=== PATIENT | female | born 1960 | race African-American/Black ===

== ENCOUNTER 2021-02-12 13:01 | Emergency (ER) | payer OTHER ==
[2021-02-12 13:11] LABS: Glucose,Whole Blood 237 mg/dL (75-99)
[2021-02-12 13:12] VITALS: TEMP 98
[2021-02-12] MEDS ORDERED: SODIUM CHLORIDE 0.9% 1,000 ML IV STA (13:19)
--- NOTE | 2021-02-12 13:33 | ED ---
General Adult HPI - General Source: patient Mode of arrival: wheelchair Limitations: no limitations <Isaac Mosley Vitor - Last Filed: 02/12/21 14:53> <Sarah Villatoro Rachell - Last Filed: 02/12/21 21:39> - General Chief complaint: Recheck/Abnormal Lab/Rx Stated complaint: hyperglycemia Time Seen by Provider: 02/12/21 13:19 - History of Present Illness Initial comments: Dictation was produced using eegoes dictation software. please excuse any grammatical, word or spelling errors. This patient was cared for during a federal and state declared state of emergency secondary to Covid 19 Chief Complaint: 60-year-old female presents emergency department for weakness History of Present Illness: Patient is a 60-year-old female presents to the emergency department for weakness. Patient states she was admitted to [facility] ICU yesterday. She was found to have anemia given's blood transfusion. She'll likely she was treated there. She ate a meat loaf and asked for food after and they did not give her any more food. She signed out AGAINST MEDICAL ADVICE and came to our hospital. She states she's been feeling better since the blood transfusion. She has no pain complaints. Denies any GI bleed. She is checking her sugars at home which have been reading very high. Her blood sugar in triage was 237. The ROS documented in this emergency department record has been reviewed and confirmed by me. Those systems with pertinent positive or negative responses have been documented in the HPI. All other systems are other negative and/or noncontributory. PHYSICAL EXAM: General Impression: Alert and oriented x3, not in acute distress HEENT: Normocephalic atraumatic, extra-ocular movements intact, pupils equal and reactive to light bilaterally, mucous membranes moist. Cardiovascular: Heart regular rate and rhythm Chest: Able to complete full sentences, no retractions, no tachypnea Abdomen: abdomen soft, non-tender, non-distended, no organomegaly Musculoskeletal: Pulses present and equal in all extremities, no peripheral edema, right lower extremity amputation Motor: no focal deficits noted Neurological: CN II-XII grossly intact, no focal motor or sensory deficits noted Skin: Intact with no visualized rashes Psych: Normal affect and mood ED course: 60-year-old female who signed out AGAINST MEDICAL ADVICE at [facility] presents to our emergency department for weakness. She states that she was admitted yesterday to [facility] ICU for anemia. She received a blood transfusion she says. Vital signs upon arrival are within acceptable limits. Patient's in no acute distress at bedside. Clinical documentation from [facility] was reviewed from last admission. Patient labs from yesterday shows a hemoglobin of 6.5, hematocrit of 19.7. Metabolic panel showed potassium 3.3, BUN of 58, creatinine 1.2. Coronavirus negative. plan was admission to ICU with consult to GI. patient care signed out to Dr. Villatoro for follow up of pending lab studies. EKG interpretation: Ventricular rate 94, normal sinus rhythm,. Interval 140, QRS 70, QTc 462. No ME prolongation, no QTC prolongation, no ST or T-wave changes noted. Overall, this EKG is unremarkable (Isaac Mosley) - Related Data Home Medications Medication Instructions Recorded Confirmed Atorvastatin [Lipitor] 20 mg PO HS 02/12/21 02/12/21 Chlorthalidone 25 mg PO DAILY 02/12/21 02/12/21 Cilostazol [Pletal] 100 mg PO BID 02/12/21 02/12/21 Clopidogrel [Plavix] 75 mg PO DAILY 02/12/21 02/12/21 Docusate [Colace] 100 mg PO DAILY 02/12/21 02/12/21 Ferrous Sulfate [Feosol] 325 mg PO BID 02/12/21 02/12/21 INSULIN LISPRO (humaLOG) [humaLOG] 14 units SQ AC-TID 02/12/21 02/12/21 Insulin Glargine,Hum.rec.anlog 20 unit SQ DAILY 02/12/21 02/12/21 [Lantus Solostar] Insulin Glargine,Hum.rec.anlog 30 unit SQ HS 02/12/21 02/12/21 [Lantus Solostar] Pantoprazole Sodium [Protonix] 40 mg PO DAILY 02/12/21 02/12/21 Potassium Chloride [Klor-Con 20] 20 meq PO DAILY 02/12/21 02/12/21 Pregabalin [Lyrica] 150 mg PO BID 02/12/21 02/12/21 Rivaroxaban [Xarelto] 20 mg PO HS 02/12/21 02/12/21 lisinopriL 40 mg PO DAILY 02/12/21 02/12/21 metFORMIN HCL 1,000 mg PO W/SUPPER 02/12/21 02/12/21 oxyCODONE-APAP 10-325MG [Percocet 1 tab PO Q8HR PRN 02/12/21 02/12/21 10-325 mg] Allergies Allergy/AdvReac Type Severity Reaction Status Date / Time heparin Allergy Anaphylaxis Verified 02/12/21 14:43 morphine Allergy Anaphylaxis Verified 02/12/21 14:43 tree nut Allergy Nausea & Verified 02/12/21 14:43 Vomiting & Diarrhea Review of Systems ROS Other: All systems not noted in ROS Statement are negative. <Isaac Mosley - Last Filed: 02/12/21 14:53> ROS Other: All systems not noted in ROS Statement are negative. <Sarah Villatoro - Last Filed: 02/12/21 21:39> ROS Statement: Those systems with pertinent positive or pertinent negative responses have been documented in the HPI. Past Medical History Past Medical History: Diabetes Mellitus, Hyperlipidemia, Hypertension History of Any Multi-Drug Resistant Organisms: None Reported Past Surgical History: Orthopedic Surgery Additional Past Surgical History / Comment(s): neck fusion. rt below knee amputaion Past Psychological History: No Psychological Hx Reported Smoking Status: Never smoker Past Alcohol Use History: None Reported Past Drug Use History: None Reported <Isaac Mosley - Last Filed: 02/12/21 14:53> General Exam Limitations: no limitations <Isaac Mosley - Last Filed: 02/12/21 14:53> Course Vital Signs 02/12/21 02/12/21 13:08 16:05 Temperature 98.0 F Pulse Rate 100 92 Respiratory 22 18 Rate Blood Pressure 115/79 110/82 O2 Sat by Pulse 100 98 Oximetry Medical Decision Making - Lab Data Result diagrams: 02/12/21 13:51 02/12/21 13:51 <Sarah Villatoro - Last Filed: 02/12/21 21:39> - Medical Decision Making The patient was signed out to me from Dr. Mosley. I did review the patient's labs. She previously left [facility] AGAINST MEDICAL ADVICE after she was found to have a low hemoglobin level. Occult was negative and the patient was provided with 1 unit of blood. Patient left last night and presents to our Hospital today for reevaluation. She denies any active bleeding. 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 Patient is suspicious that she may have loss of blood after this procedure as there is no other reason for her anemia. Patient states that since her blood transfusion she has felt well. I reviewed the patient's labs which demonstrated that she has a hemoglobin of 8.1. Patient reports that if her hemoglobin is stable at this time she would like to be discharged. Patient is informed that she must absolutely without fail follow-up with her primary care doctor within 2 days and have repeat laboratory studies drawn to ensure that her hemoglobin is staying stable. Patient agreed to this. I did speak with Ruben Wright from Dr. Corona's office. The patient is capable of making her own decisions and therefore will be discharged at this time to follow-up with him or Dr. Corona. Patient understood this. Asked to return to the emergency room should she have any new or worsening symptoms per patient was discharged home in stable condition (Sarah Villatoro) - Lab Data Lab Results 02/12/21 02/12/21 02/12/21 Range/Units 13:10 13:51 13:51 WBC 8.0 (3.8-10.6) k/uL RBC 2.66 L (3.80-5.40) m/uL Hgb 8.1 L (11.4-16.0) gm/dL Hct 25.0 L (34.0-46.0) % MCV 93.8 (80.0-100.0) fL MCH 30.4 (25.0-35.0) pg MCHC 32.4 (31.0-37.0) g/dL RDW 17.3 H (11.5-15.5) % Plt Count 270 (150-450) k/uL MPV 8.8 Neutrophils % 73 % Lymphocytes % 21 % Monocytes % 3 % Eosinophils % 2 % Basophils % 0 % Neutrophils # 5.8 (1.3-7.7) k/uL Lymphocytes # 1.7 (1.0-4.8) k/uL Monocytes # 0.3 (0-1.0) k/uL Eosinophils # 0.1 (0-0.7) k/uL Basophils # 0.0 (0-0.2) k/uL Hypochromasia Slight Poikilocytosis Slight Anisocytosis Slight PT (9.0-12.0) sec INR (<1.2) APTT (22.0-30.0) sec Sodium (137-145) mmol/L Potassium (3.5-5.1) mmol/L Chloride (98-107) mmol/L Carbon Dioxide (22-30) mmol/L Anion Gap mmol/L BUN (7-17) mg/dL Creatinine (0.52-1.04) mg/dL Est GFR (CKD-EPI)AfAm (>60 ml/min/1.73 sqM) Est GFR (CKD-EPI)NonAf (>60 ml/min/1.73 sqM) Glucose (74-99) mg/dL POC Glucose (mg/dL) 237 H (75-99) mg/dL POC Glu Carbonator ID [facility] Plasma Lactic Acid Mamadou (0.7-2.0) mmol/L Calcium (8.4-10.2) mg/dL Urine Color Light Yellow Urine Appearance Clear (Clear) Urine pH 5.5 (5.0-8.0) Ur Specific Halliday 1.012 (1.001-1.035) Urine Protein Negative (Negative) Urine Glucose (UA) Trace H (Negative) Urine Ketones Negative (Negative) Urine Blood Negative (Negative) Urine Nitrite Negative (Negative) Urine Bilirubin Negative (Negative) Urine Urobilinogen <2.0 (<2.0) mg/dL Ur Leukocyte Esterase Negative (Negative) 02/12/21 02/12/21 02/12/21 Range/Units 13:51 13:51 15:07 WBC (3.8-10.6) k/uL RBC (3.80-5.40) m/uL Hgb (11.4-16.0) gm/dL Hct (34.0-46.0) % MCV (80.0-100.0) fL MCH (25.0-35.0) pg MCHC (31.0-37.0) g/dL RDW (11.5-15.5) % Plt Count (150-450) k/uL MPV Neutrophils % % Lymphocytes % % Monocytes % % Eosinophils % % Basophils % % Neutrophils # (1.3-7.7) k/uL Lymphocytes # (1.0-4.8) k/uL Monocytes # (0-1.0) k/uL Eosinophils # (0-0.7) k/uL Basophils # (0-0.2) k/uL Hypochromasia Poikilocytosis Anisocytosis PT 9.9 (9.0-12.0) sec INR 0.9 (<1.2) APTT 18.2 L (22.0-30.0) sec Sodium 144 (137-145) mmol/L Potassium 4.1 (3.5-5.1) mmol/L Chloride 111 H (98-107) mmol/L Carbon Dioxide 28 (22-30) mmol/L Anion Gap 5 mmol/L BUN 27 H (7-17) mg/dL Creatinine 0.66 (0.52-1.04) mg/dL Est GFR (CKD-EPI)AfAm >90 (>60 ml/min/1.73 sqM) Est GFR (CKD-EPI)NonAf >90 (>60 ml/min/1.73 sqM) Glucose 170 H (74-99) mg/dL POC Glucose (mg/dL) (75-99) mg/dL POC Glu Carbonator ID Plasma Lactic Acid Mamadou 1.4 (0.7-2.0) mmol/L Calcium 9.8 (8.4-10.2) mg/dL Urine Color Urine Appearance (Clear) Urine pH (5.0-8.0) Ur Specific Halliday (1.001-1.035) Urine Protein (Negative) Urine Glucose (UA) (Negative) Urine Ketones (Negative) Urine Blood (Negative) Urine Nitrite (Negative) Urine Bilirubin (Negative) Urine Urobilinogen (<2.0) mg/dL Ur Leukocyte Esterase (Negative) Disposition <Isaac Mosley - Last Filed: 02/12/21 14:53> Is patient prescribed a controlled substance at d/c from ED?: No Time of Disposition: 15:56 <Sarah Villatoro - Last Filed: 02/12/21 21:39> Clinical Impression: Anemia Disposition: HOME SELF-CARE Condition: Stable Instructions (If sedation given, give patient instructions): Anemia (ED) Additional Instructions: You must follow up with Dr. Corona for repeat blood work in 2-4 day. Return to the ED for any new or worsening symptoms. Referrals: Luc Corona MD [Primary Care Provider] - 1-2 days
[2021-02-12 15:08] LABS: Appearance,Urine Clear (Clear); Bilirubin,Urine Negative (Negative); Blood,Urine Negative (Negative); Color,Urine Light Yellow; Glucose,Urine (UA) Trace (Negative); Ketones,Urine Negative (Negative); Leukocyte Esterase,Urine Negative (Negative); Nitrite,Urine Negative (Negative); PH, Urine 5.5 (5.0-8.0); Protein,Urine Negative (Negative); Specific Gravity,Urine 1.012 (1.001-1.035); Urobilinogen,Urine <2.0 mg/dL (<2.0)
[2021-02-12 15:17] LABS: African American GFR (CKD) >90 (>60 ml/min/1.73 sqM); Anion Gap 5 mmol/L; Blood Urea Nitrogen 27 mg/dL (7-17); Calcium 9.8 mg/dL (8.4-10.2); Carbon Dioxide 28 mmol/L (22-30); Chloride 111 mmol/L (98-107); Glucose 170 mg/dL (74-99); Non-African American GFR(CKD) >90 (>60 ml/min/1.73 sqM); Potassium 4.1 mmol/L (3.5-5.1); Sodium 144 mmol/L (137-145)
[2021-02-12 15:24] LABS: Anisocytosis Slight; Basophils % (A) 0 %; Eosinophils # (A) 0.1 k/uL (0-0.7); Eosinophils % (A) 2 %; HGB 8.1 gm/dL (11.4-16.0); Hypochromasia Slight; Lymphocytes # (A) 1.7 k/uL (1.0-4.8); Lymphocytes % (A) 21 %; MCH 30.4 pg (25.0-35.0); MCHC 32.4 g/dL (31.0-37.0); MCV 93.8 fL (80.0-100.0); Mean Platelet Volume 8.8; Monocytes # (A) 0.3 k/uL (0-1.0); Monocytes % (A) 3 %; Neutrophils # (A) 5.8 k/uL (1.3-7.7); Neutrophils % (A) 73 %; Platelet Count 270 k/uL (150-450); Poikilocytosis Slight; RBC 2.66 m/uL (3.80-5.40); RDW 17.3 % (11.5-15.5)
[2021-02-12 15:36] LABS: INR 0.9 (<1.2); Prothrombin Time 9.9 sec (9.0-12.0)
[2021-02-12 15:49] LABS: Partial Thromboplastin Time 18.2 sec (22.0-30.0)
[2021-02-12 16:06] VITALS: BP 110/82; PULSE 92; RESP 18
== END 2021-02-12 16:16 | disposition home or self-care (01) ==
LOC: EC 13:01
DX: D64.9 Anemia, unspecified (principal); E78.5 Hyperlipidemia, unspecified; I10 Essential (primary) hypertension; E11.9 Type 2 diabetes mellitus without complications; Z79.84 Long term (current) use of oral hypoglycemic drugs
CPT/HCPCS: 36415; 80048; 81003; 83605; 85025; 85610; 85730; 93005; 96360; 99285

== ENCOUNTER 2021-02-20 12:38 | Inpatient (IN) | payer OTHER ==
[2021-02-20] MEDS ORDERED: SODIUM CHLORIDE 0.9% 500 ML 500 ML IV STA (13:01)
--- NOTE | 2021-02-20 13:27 | ED ---
General Adult HPI - General Chief complaint: Weakness Stated complaint: Weakness Time Seen by Provider: 02/20/21 12:45 Source: patient, RN notes reviewed, old records reviewed Mode of arrival: wheelchair Limitations: no limitations - History of Present Illness Initial comments: This a 60-year-old female presents emergency Department complaining that she is very weak. Patient states been ongoing for the last week. Patient states about a week ago she was here for anemia they did not do a scope on her and they sent her home. Patient states she continues to take her Plavix Xarelto. Patient states she has had some dark black stools but her weakness is becoming overwhelming. Patient states any kind of exertion causes increased weakness. Patient denies any chest pain or palpitations. Patient does states she is short of breath she exerts herself at all. Patient denies any abdominal pain. Patient denies any chest pain. Patient denies any leg pains. - Related Data Home Medications Medication Instructions Recorded Confirmed Atorvastatin [Lipitor] 20 mg PO HS 02/12/21 02/20/21 Chlorthalidone 25 mg PO DAILY 02/12/21 02/20/21 Cilostazol [Pletal] 100 mg PO BID 02/12/21 02/20/21 Clopidogrel [Plavix] 75 mg PO DAILY 02/12/21 02/20/21 Docusate [Colace] 100 mg PO DAILY 02/12/21 02/20/21 Ferrous Sulfate [Feosol] 325 mg PO BID 02/12/21 02/20/21 INSULIN LISPRO (humaLOG) [humaLOG] 14 units SQ AC-TID 02/12/21 02/20/21 Insulin Glargine,Hum.rec.anlog 20 unit SQ DAILY 02/12/21 02/20/21 [Lantus Solostar] Insulin Glargine,Hum.rec.anlog 30 unit SQ HS 02/12/21 02/20/21 [Lantus Solostar] Pantoprazole Sodium [Protonix] 40 mg PO DAILY 02/12/21 02/20/21 Potassium Chloride [Klor-Con 20] 20 meq PO DAILY 02/12/21 02/20/21 Pregabalin [Lyrica] 150 mg PO BID 02/12/21 02/20/21 Rivaroxaban [Xarelto] 20 mg PO HS 02/12/21 02/20/21 lisinopriL 40 mg PO DAILY 02/12/21 02/20/21 metFORMIN HCL 1,000 mg PO BID 02/12/21 02/20/21 oxyCODONE-APAP 10-325MG [Percocet 1 tab PO Q8HR PRN 02/12/21 02/20/21 10-325 mg] Allergies Allergy/AdvReac Type Severity Reaction Status Date / Time heparin Allergy Anaphylaxis Verified 02/20/21 15:54 morphine Allergy Anaphylaxis Verified 02/20/21 15:54 tree nut Allergy Nausea & Verified 02/20/21 15:54 Vomiting & Diarrhea Review of Systems ROS Statement: Those systems with pertinent positive or pertinent negative responses have been documented in the HPI. ROS Other: All systems not noted in ROS Statement are negative. Past Medical History Past Medical History: Diabetes Mellitus, Hyperlipidemia, Hypertension Additional Past Medical History / Comment(s): anemia History of Any Multi-Drug Resistant Organisms: None Reported Past Surgical History: Orthopedic Surgery Additional Past Surgical History / Comment(s): neck fusion. rt below knee amputaion Past Psychological History: No Psychological Hx Reported Smoking Status: Never smoker Past Alcohol Use History: None Reported Past Drug Use History: None Reported General Exam - General Exam Comments Initial Comments: GENERAL: Patient is well-developed and well-nourished. Patient is nontoxic and well- hydrated and is in no acute distress. ENT: Neck is soft and supple. No significant lymphadenopathy is noted. Oropharynx is clear. Moist mucous membranes. Neck has full range of motion without eliciting any pain. EYES: The sclera were anicteric and pale conjunctiva.. Extraocular movements were intact and pupils were equal round and reactive to light. Eyelids were unremarkable. PULMONARY: Unlabored respirations. Good breath sounds bilaterally. No audible rales rhonchi or wheezing was noted. CARDIOVASCULAR: Patient is tachycardic at 100 beats a minute. ABDOMEN: Soft and nontender with normal bowel sounds. SKIN: Skin is clear with no lesions or rashes and otherwise unremarkable. NEUROLOGIC: Patient is alert and oriented x3. Cranial nerves II through XII are grossly intact. Motor and sensory are also intact. Normal speech, volume and content. Symmetrical smile. MUSCULOSKELETAL: Normal extremities with adequate strength and full range of motion. LYMPHATICS: No significant lymphadenopathy is noted PSYCHIATRIC: Normal psychiatric evaluation. Limitations: no limitations Course Vital Signs 02/20/21 02/20/21 02/20/21 12:43 14:33 16:00 Temperature 98.1 F Pulse Rate 98 98 93 Respiratory 22 20 20 Rate Blood Pressure 105/46 112/66 103/54 O2 Sat by Pulse 100 100 100 Oximetry Medical Decision Making - Medical Decision Making EKG shows normal sinus rhythm at 100 bpm IA interval 138 QRS 74 QT interval 314 QTC is 45 per patient's EKG shows no ST segment elevation or depression. - Lab Data Result diagrams: 02/20/21 15:08 02/20/21 15:20 Lab Results 02/20/21 02/20/21 02/20/21 Range/Units 15:08 15:08 15:08 WBC 7.6 (3.8-10.6) k/uL RBC 1.92 L (3.80-5.40) m/uL Hgb 5.6 L* D (11.4-16.0) gm/dL Hct 18.8 L* (34.0-46.0) % MCV 98.0 (80.0-100.0) fL MCH 29.6 (25.0-35.0) pg MCHC 30.3 L (31.0-37.0) g/dL RDW 16.6 H (11.5-15.5) % Plt Count 296 (150-450) k/uL MPV 8.4 Neutrophils % 71 % Lymphocytes % 24 % Monocytes % 3 % Eosinophils % 1 % Basophils % 0 % Neutrophils # 5.4 (1.3-7.7) k/uL Lymphocytes # 1.8 (1.0-4.8) k/uL Monocytes # 0.2 (0-1.0) k/uL Eosinophils # 0.1 (0-0.7) k/uL Basophils # 0.0 (0-0.2) k/uL Hypochromasia Marked Poikilocytosis Moderate Anisocytosis Slight Macrocytosis Slight PT (9.0-12.0) sec INR (<1.2) APTT (22.0-30.0) sec Sodium (137-145) mmol/L Potassium (3.5-5.1) mmol/L Chloride (98-107) mmol/L Carbon Dioxide (22-30) mmol/L Anion Gap mmol/L BUN (7-17) mg/dL Creatinine (0.52-1.04) mg/dL Est GFR (CKD-EPI)AfAm (>60 ml/min/1.73 sqM) Est GFR (CKD-EPI)NonAf (>60 ml/min/1.73 sqM) Glucose (74-99) mg/dL Calcium (8.4-10.2) mg/dL Magnesium (1.6-2.3) mg/dL Total Bilirubin (0.2-1.3) mg/dL AST (14-36) U/L ALT (4-34) U/L Alkaline Phosphatase (38-126) U/L Troponin I <0.012 (0.000-0.034) ng/mL Total Protein (6.3-8.2) g/dL Albumin (3.5-5.0) g/dL Blood Type B Positive Blood Type Confirm Blood Type Recheck No Previous Record Bld Type Recheck Status CABO Indicated Antibody Screen NEGATIVE Crossmatch See Detail Spec Expiration Date 02/23/2021 - 230702/20/21 02/20/21 02/20/21 Range/Units 15:10 15:20 15:20 WBC (3.8-10.6) k/uL RBC (3.80-5.40) m/uL Hgb (11.4-16.0) gm/dL Hct (34.0-46.0) % MCV (80.0-100.0) fL MCH (25.0-35.0) pg MCHC (31.0-37.0) g/dL RDW (11.5-15.5) % Plt Count (150-450) k/uL MPV Neutrophils % % Lymphocytes % % Monocytes % % Eosinophils % % Basophils % % Neutrophils # (1.3-7.7) k/uL Lymphocytes # (1.0-4.8) k/uL Monocytes # (0-1.0) k/uL Eosinophils # (0-0.7) k/uL Basophils # (0-0.2) k/uL Hypochromasia Poikilocytosis Anisocytosis Macrocytosis PT 12.4 H (9.0-12.0) sec INR 1.2 H (<1.2) APTT 20.1 L (22.0-30.0) sec Sodium 141 (137-145) mmol/L Potassium 3.6 (3.5-5.1) mmol/L Chloride 108 H (98-107) mmol/L Carbon Dioxide 24 (22-30) mmol/L Anion Gap 9 mmol/L BUN 24 H (7-17) mg/dL Creatinine 0.72 (0.52-1.04) mg/dL Est GFR (CKD-EPI)AfAm >90 (>60 ml/min/1.73 sqM) Est GFR (CKD-EPI)NonAf >90 (>60 ml/min/1.73 sqM) Glucose 89 (74-99) mg/dL Calcium 9.7 (8.4-10.2) mg/dL Magnesium 1.8 (1.6-2.3) mg/dL Total Bilirubin 0.2 (0.2-1.3) mg/dL AST 19 (14-36) U/L ALT 11 (4-34) U/L Alkaline Phosphatase 74 (38-126) U/L Troponin I (0.000-0.034) ng/mL Total Protein 6.6 (6.3-8.2) g/dL Albumin 3.7 (3.5-5.0) g/dL Blood Type Blood Type Confirm B Positive Blood Type Recheck Bld Type Recheck Status Antibody Screen Crossmatch Spec Expiration Date Disposition Clinical Impression: Anemia, Generalized weakness Disposition: ADMITTED IP TO THIS HOSP Referrals: Luc Corona MD [Primary Care Provider] - 1-2 days Time of Disposition: 16:37
--- NOTE | 2021-02-20 13:46 | XR ---
EXAMINATION TYPE: XR chest 2V DATE OF EXAM: 02/20/2021 COMPARISON: NONE TECHNIQUE: PA and lateral views submitted. HISTORY: Difficulty in breathing FINDINGS: The lungs are clear and there is no pneumothorax, pleural effusion, or focal pneumonia. Mildly prom inent interstitium. Postsurgical change overlying the cervical spine. Heart size stable. IMPRESSION: 1. Correlate for bronchitis or mild interstitial pneumonitis..
[2021-02-20 15:33] LABS: Anisocytosis Slight; Basophils % (A) 0 %; Eosinophils # (A) 0.1 k/uL (0-0.7); Eosinophils % (A) 1 %; Hypochromasia Marked; Lymphocytes # (A) 1.8 k/uL (1.0-4.8); Lymphocytes % (A) 24 %; MCH 29.6 pg (25.0-35.0); MCHC 30.3 g/dL (31.0-37.0); Macrocytosis Slight; Mean Platelet Volume 8.4; Monocytes # (A) 0.2 k/uL (0-1.0); Monocytes % (A) 3 %; Neutrophils # (A) 5.4 k/uL (1.3-7.7); Neutrophils % (A) 71 %; Platelet Count 296 k/uL (150-450); Poikilocytosis Moderate; RBC 1.92 m/uL (3.80-5.40); RDW 16.6 % (11.5-15.5); WBC 7.6 k/uL (3.8-10.6)
[2021-02-20 15:42] LABS: HCT 18.8 % (34.0-46.0)
[2021-02-20 15:43] LABS: HGB 5.6 gm/dL (11.4-16.0)
[2021-02-20 15:55] LABS: INR 1.2 (<1.2); Prothrombin Time 12.4 sec (9.0-12.0)
[2021-02-20 15:56] LABS: Partial Thromboplastin Time 20.1 sec (22.0-30.0)
[2021-02-20 15:58] LABS: ALT 11 U/L (4-34); AST 19 U/L (14-36); African American GFR (CKD) >90 (>60 ml/min/1.73 sqM); Albumin 3.7 g/dL (3.5-5.0); Alkaline Phosphatase 74 U/L (38-126); Anion Gap 9 mmol/L; Blood Urea Nitrogen 24 mg/dL (7-17); Calcium 9.7 mg/dL (8.4-10.2); Carbon Dioxide 24 mmol/L (22-30); Chloride 108 mmol/L (98-107); Glucose 89 mg/dL (74-99); Magnesium 1.8 mg/dL (1.6-2.3); Non-African American GFR(CKD) >90 (>60 ml/min/1.73 sqM); Potassium 3.6 mmol/L (3.5-5.1); Sodium 141 mmol/L (137-145); Total Bilirubin 0.2 mg/dL (0.2-1.3); Total Protein 6.6 g/dL (6.3-8.2)
[2021-02-20] MEDS ORDERED: PANTOPRAZOLE 40 MG/10 ML VIAL IVP ONE (16:32)
[2021-02-20] MEDS ORDERED: SODIUM CHLORIDE 0.9% 1,000 ML IV ONE (16:38)
[2021-02-20] MEDS ORDERED: Magnesium Replacement Protocol 1 EACH MISC MISCELLANE PRN (21:14)
--- NOTE | 2021-02-20 21:36 | P.HPIM ---
History of Present Illness H&P Date: 02/20/21 Chief Complaint: Generalized weakness 60-year-old female presented to the emergency department with the complaint of generalized weakness, shortness of breath at rest and exertion and fatigue for acute on chronic duration. Patient recently hospitalized at [facility] for G.I. bleed, she left against medical advice and went [facility] and was found to have a hemoglobin of 8.0. Patient follow-up with our services for transition of care was told to hold anticoagulation therapy. Patient continued anticoagulation therapy per vascular surgeon due to severe peripheral artery disease. Patient had extensive diagnostic workup in emergency department revealing a critical hemoglobin and hematocrit.Patient has significant reaction to heparin therapy unable to use Kcentra for reversal of anticoagulation therapy.2 units of packed red blood cells ordered to transfuse with serial hemoglobin and hematocrit's. Consultation with gastroenterology, general surgery, and critical care for management of severe anemia possibly due to gastrointestinal bleeding. Patient has significant medical history of diabetes mellitus type two, peripheral vascular disease, peripheral artery disease, hypertension, hyperlipidemia, chronic nicotine dependence, and several comorbid ities. Review of Systems Constitutional: Reports chronic pain, Reports fatigue, Reports malaise, Reports weakness Cardiovascular: Reports decreased exercise tolerance, Reports dyspnea on exertion, Reports lightheadedness, Reports shortness of breath Respiratory: Reports dyspnea Gastrointestinal: Reports abdominal pain Genitourinary: Reports as per HPI Menstruation: Reports as per HPI Musculoskeletal: Reports muscle weakness Neurological: Reports balance difficulties, Reports weakness Psychiatric: Reports as per HPI Past Medical History Past Medical History: Diabetes Mellitus, Hyperlipidemia, Hypertension Additional Past Medical History / Comment(s): anemia History of Any Multi-Drug Resistant Organisms: None Reported Past Surgical History: Orthopedic Surgery Additional Past Surgical History / Comment(s): neck fusion. rt below knee amputaion Past Psychological History: No Psychological Hx Reported Smoking Status: Never smoker Past Alcohol Use History: None Reported Past Drug Use History: None Reported Medications and Allergies Home Medications and Allergies Comment(s): Medications and allergies reviewed Home Medications Medication Instructions Recorded Confirmed Type Atorvastatin [Lipitor] 20 mg PO HS 02/12/21 02/20/21 History Chlorthalidone 25 mg PO DAILY 02/12/21 02/20/21 History Cilostazol [Pletal] 100 mg PO BID 02/12/21 02/20/21 History Clopidogrel [Plavix] 75 mg PO DAILY 02/12/21 02/20/21 History Docusate [Colace] 100 mg PO DAILY 02/12/21 02/20/21 History Ferrous Sulfate [Feosol] 325 mg PO BID 02/12/21 02/20/21 History INSULIN LISPRO (humaLOG) [humaLOG] 14 units SQ AC-TID 02/12/21 02/20/21 History Insulin Glargine,Hum.rec.anlog 20 unit SQ DAILY 02/12/21 02/20/21 History [Lantus Solostar] Insulin Glargine,Hum.rec.anlog 30 unit SQ HS 02/12/21 02/20/21 History [Lantus Solostar] Pantoprazole Sodium [Protonix] 40 mg PO DAILY 02/12/21 02/20/21 History Potassium Chloride [Klor-Con 20] 20 meq PO DAILY 02/12/21 02/20/21 History Pregabalin [Lyrica] 150 mg PO BID 02/12/21 02/20/21 History Rivaroxaban [Xarelto] 20 mg PO HS 02/12/21 02/20/21 History lisinopriL 40 mg PO DAILY 02/12/21 02/20/21 History metFORMIN HCL 1,000 mg PO BID 02/12/21 02/20/21 History oxyCODONE-APAP 10-325MG [Percocet 1 tab PO Q8HR PRN 02/12/21 02/20/21 History 10-325 mg] Allergies Allergy/AdvReac Type Severity Reaction Status Date / Time heparin Allergy Anaphylaxis Verified 02/20/21 15:54 morphine Allergy Anaphylaxis Verified 02/20/21 15:54 tree nut Allergy Nausea & Verified 02/20/21 15:54 Vomiting & Diarrhea Physical Exam Vitals: Vital Signs Temp Pulse Resp BP Pulse Ox 02/20/21 21:13 98.5 F 92 18 91/38 100 02/20/21 20:31 98.6 F 101 H 18 101/50 96 02/20/21 20:01 98.3 F 90 18 103/48 97 02/20/21 19:51 98.8 F 101 H 20 86/59 96 02/20/21 19:49 98.8 F 101 H 20 86/59 96 02/20/21 19:24 98 F 69 16 121/78 02/20/21 18:00 95 18 91/51 100 02/20/21 17:31 98 02/20/21 17:21 98.5 F 82 16 116/62 02/20/21 16:51 98 F 93 18 112/71 02/20/21 16:41 98.2 F 90 16 108/57 02/20/21 16:00 93 20 103/54 100 02/20/21 14:33 98 20 112/66 100 02/20/21 12:43 98.1 F 98 22 105/46 100 Intake and Output 02/20/21 02/20/21 02/20/21 06:59 14:59 22:59 Intake Total 310 Balance 310 Intake: Blood Product 310 Rc As-1 Unit 0 [id number] Rc As-1 Unit 310 [id number] Other: Weight 99.79 kg - Constitutional General appearance: mild distress - EENT Eyes: PERRLA, poor dentition Ears: bilateral: normal - Neck Carotids: bilateral: upstroke normal Thyroid: bilateral: normal size - Respiratory Respiratory: bilateral: CTA (Anterior lung hicks), diminished (Posterior lung hicks) - Cardiovascular Sinus tachycardia Heart rate: 101 Rhythm: regular Heart sounds: normal: S1, S2 radial pulse Peripheral Pulses: bilateral: Normal - Gastrointestinal General gastrointestinal: hyperactive bowel sounds Localized gastrointestinal: tender: diffuse - Integumentary Integumentary: decreased turgor, pale - Neurologic Neurologic: CNII-XII intact - Musculoskeletal Musculoskeletal: generalized weakness - Psychiatric Psychiatric: A&O x's 3, appropriate affect, intact judgment & insight Results CBC & Chem 7: 02/20/21 15:08 02/20/21 15:20 Labs: Abnormal Lab Results - Last 24 Hours (Table) 02/20/21 02/20/21 02/20/21 Range/Units 15:08 15:08 15:20 RBC 1.92 L (3.80-5.40) m/uL Hgb 5.6 L* D (11.4-16.0) gm/dL Hct 18.8 L* (34.0-46.0) % MCHC 30.3 L (31.0-37.0) g/dL RDW 16.6 H (11.5-15.5) % PT 12.4 H (9.0-12.0) sec INR 1.2 H (<1.2) APTT 20.1 L (22.0-30.0) sec Chloride (98-107) mmol/L BUN (7-17) mg/dL Crossmatch See Detail 02/20/21 Range/Units 15:20 RBC (3.80-5.40) m/uL Hgb (11.4-16.0) gm/dL Hct (34.0-46.0) % MCHC (31.0-37.0) g/dL RDW (11.5-15.5) % PT (9.0-12.0) sec INR (<1.2) APTT (22.0-30.0) sec Chloride 108 H (98-107) mmol/L BUN 24 H (7-17) mg/dL Crossmatch Chest x-ray: report reviewed Thrombosis Risk Factor Assmnt - Choose All That Apply Each Factor Represents 1 point: Age 41-60 years, Obesity (BMI >25) Each Risk Factor Represents 3 Points: History of DVT/PE Thrombosis Risk Factor Assessment Total Risk Factor Score: 5 Thrombosis Risk Factor Assessment Level: High Risk Assessment and Plan Assessment: Gastrointestinal bleeding anemia generalized weakness diabetes mellitus type II hypertension hyperlipidemia peripheral vascular disease peripheral artery disease coronary artery disease history of G.I. bleeding below the knee amputation history of multiple femoral bypasses nicotine dependence full code Plan: Possible gastrointestinal bleeding consultation with gastroenterology, general surgery for recommendations and treatment plan. Serial hemoglobin and hematocrit's order transfused 2 units of packed red blood cells; Protonix 40 mg IV daily anemia possibly due to gastrointestinal bleeding order transfused 2 units of packed red blood cells; consultation with gastroenterology and general surgery for recommendations and treatment plan diabetes mellitus type II insulin sliding scale monitor vital signs and diagnostic testing nothing per mouth awaiting recommendations from gastroenterology and general surgery medical management consultation with critical care for multiple comorbidities further recommendations to come based on patient's clinical condition Time with Patient: Greater than 30
[2021-02-20] MEDS ORDERED: FUROSEMIDE 10 MG/ML 2 ML VIAL IV ONE (21:47)
[2021-02-20 21:50] LABS: Glucose,Whole Blood 240 mg/dL (75-99)
[2021-02-20] MEDS: INSULIN ASPART (NovoLOG) 100 UNIT/ML VIAL SQ SCH (23:57)
[2021-02-20] MEDS: MAGNESIUM SULFATE-D5W PMX 1 GM in DEXTROSE/WATER 1 100ML.BAG IVPB SCH (23:58)
[2021-02-21] MEDS: MAGNESIUM SULFATE-D5W PMX 1 GM in DEXTROSE/WATER 1 100ML.BAG IVPB SCH (01:11)
[2021-02-21 05:44] LABS: Anisocytosis Slight; HCT 24.5 % (34.0-46.0); Hypochromasia Marked; MCH 29.1 pg (25.0-35.0); MCHC 31.4 g/dL (31.0-37.0); Mean Platelet Volume 8.5; Platelet Count 255 k/uL (150-450); Poikilocytosis Slight; RBC 2.64 m/uL (3.80-5.40); RDW 17.3 % (11.5-15.5); WBC 7.3 k/uL (3.8-10.6)
[2021-02-21 05:46] LABS: HGB 7.7 gm/dL (11.4-16.0); MCV 92.8 fL (80.0-100.0)
[2021-02-21 06:06] LABS: INR 0.9 (<1.2)
[2021-02-21 06:15] LABS: Glucose,Whole Blood 229 mg/dL (75-99)
[2021-02-21 06:22] LABS: ALT 9 U/L (4-34); AST 17 U/L (14-36); African American GFR (CKD) >90 (>60 ml/min/1.73 sqM); Albumin 3.4 g/dL (3.5-5.0); Alkaline Phosphatase 77 U/L (38-126); Anion Gap 6 mmol/L; Blood Urea Nitrogen 23 mg/dL (7-17); Carbon Dioxide 26 mmol/L (22-30); Chloride 108 mmol/L (98-107); Glucose 217 mg/dL (74-99); Magnesium 1.8 mg/dL (1.6-2.3); Non-African American GFR(CKD) >90 (>60 ml/min/1.73 sqM); Potassium 3.8 mmol/L (3.5-5.1); Sodium 140 mmol/L (137-145); Total Bilirubin 0.3 mg/dL (0.2-1.3); Total Protein 5.9 g/dL (6.3-8.2)
[2021-02-21 06:39] LABS: Partial Thromboplastin Time 20.9 sec (22.0-30.0)
--- NOTE | 2021-02-21 07:08 | P.PN ---
Subjective Progress Note Date: 02/21/21 Principal diagnosis: Gastrointestinal bleeding Anemia 60-year-old female presented to the emergency department with the complaint of generalized weakness, shortness of breath at rest and exertion and fatigue for acute on chronic duration. Patient recently hospitalized at [facility] for G.I. bleed, she left against medical advice and went [facility] and was found to have a hemoglobin of 8.0. Patient follow-up with our services for transition of care was told to hold anticoagulation therapy. Patient continued anticoagulation therapy per vascular surgeon due to severe peripheral artery disease. Patient had extensive diagnostic workup in emergency department revealing a critical hemoglobin and hematocrit.Patient has significant reaction to heparin therapy unable to use Kcentra for reversal of anticoagulation therapy.2 units of packed red blood cells ordered to transfuse with serial hemoglobin and hematocrit's. Consultation with gastroenterology, general surgery, and critical care for management of severe anemia possibly due to gastrointestinal bleeding. Patient has significant medical history of diabetes mellitus type two, peripheral vascular disease, peripheral artery disease, hypertension, hyperlipidemia, chronic nicotine dependence, and several comorbidities. 02/21/2021 Evaluated patient this a.m., patient lying in bed with 2 L of oxygen via nasal cannula patient received 2 units of packed red blood cells hemoglobin is increased to 7.7. Patient updated on medical treatment plan for gastroenterology and multiple consultants due to multiple comorbidities. Patient continues to endorse generalized weakness, shortness of breath at rest and exertion. Patient denies fever, chills, chest pain, palpitations, nausea or vomiting at this time. Awaiting recommendations from gastroenterology due to severe repeat gastrointestinal bleeding. Continue to hold anticoagulation therapy. Repeat hemoglobin and hematocrit at 1300 Objective - Vital Signs Vital signs: Vital Signs Temp 97.6 F 02/21/21 00:00 Pulse 88 02/21/21 02:00 Resp 17 02/21/21 02:00 BP 108/60 02/21/21 00:00 Pulse Ox 100 02/21/21 00:00 Intake & Output 02/20/21 02/21/21 02/21/21 18:59 06:59 18:59 Intake Total 0 620 Output Total 400 Balance 0 220 Weight 99.79 kg 98 kg Intake: Blood Product 0 620 Rc As-1 Unit 310 [id number] Rc As-1 Unit 0 310 [id number] Output: Urine 400 Other: Voiding Method Bedpan # Voids 1 - Constitutional General appearance: Present: mild distress - EENT Eyes: Present: EOMI, PERRLA ENT: Present: hard of hearing Ears: bilateral: normal - Neck Carotids: bilateral: upstroke normal Thyroid: bilateral: normal size - Respiratory Respiratory: bilateral: other (Coarse lung sounds throughout anterior and posterior) - Cardiovascular Details: Sinus rhythm Heart rate: 88 Rhythm: regular Heart sounds: normal: S1, S2 - Peripheral pulses radial pulse Peripheral Pulses: bilateral: Normal - Gastrointestinal General gastrointestinal: Present: normal bowel sounds - Integumentary Integumentary: Present: pale - Neurologic Neurologic: Present: CNII-XII intact - Musculoskeletal Musculoskeletal Comment(s): Right below knee amputation Musculoskeletal: Present: generalized weakness - Psychiatric Psychiatric: Present: A&O x's 3 - Allied health notes Allied health notes reviewed: nursing - Labs CBC & Chem 7: 02/21/21 04:36 02/21/21 04:36 Labs: Abnormal Lab Results - Last 24 Hours (Table) 02/20/21 02/20/21 02/20/21 Range/Units 15:08 15:08 15:20 RBC 1.92 L (3.80-5.40) m/uL Hgb 5.6 L* D (11.4-16.0) gm/dL Hct 18.8 L* (34.0-46.0) % MCHC 30.3 L (31.0-37.0) g/dL RDW 16.6 H (11.5-15.5) % PT 12.4 H (9.0-12.0) sec INR 1.2 H (<1.2) APTT 20.1 L (22.0-30.0) sec Chloride (98-107) mmol/L BUN (7-17) mg/dL Glucose (74-99) mg/dL POC Glucose (mg/dL) (75-99) mg/dL Total Protein (6.3-8.2) g/dL Albumin (3.5-5.0) g/dL Crossmatch See Detail 02/20/21 02/20/21 02/21/21 Range/Units 15:20 21:48 04:36 RBC (3.80-5.40) m/uL Hgb (11.4-16.0) gm/dL Hct (34.0-46.0) % MCHC (31.0-37.0) g/dL RDW (11.5-15.5) % PT (9.0-12.0) sec INR (<1.2) APTT (22.0-30.0) sec Chloride 108 H 108 H (98-107) mmol/L BUN 24 H 23 H (7-17) mg/dL Glucose 217 H (74-99) mg/dL POC Glucose (mg/dL) 240 H (75-99) mg/dL Total Protein 5.9 L (6.3-8.2) g/dL Albumin 3.4 L (3.5-5.0) g/dL Crossmatch 02/21/21 02/21/21 02/21/21 Range/Units 04:36 04:36 06:13 RBC 2.64 L (3.80-5.40) m/uL Hgb 7.7 L D (11.4-16.0) gm/dL Hct 24.5 L (34.0-46.0) % MCHC (31.0-37.0) g/dL RDW 17.3 H (11.5-15.5) % PT (9.0-12.0) sec INR (<1.2) APTT 20.9 L (22.0-30.0) sec Chloride (98-107) mmol/L BUN (7-17) mg/dL Glucose (74-99) mg/dL POC Glucose (mg/dL) 229 H (75-99) mg/dL Total Protein (6.3-8.2) g/dL Albumin (3.5-5.0) g/dL Crossmatch - Imaging and Cardiology Chest x-ray: pending Assessment and Plan Assessment: Gastrointestinal bleeding anemia generalized weakness diabetes mellitus type II hypertension hyperlipidemia peripheral vascular disease peripheral artery disease coronary artery disease history of G.I. bleeding below the knee amputation history of multiple femoral bypasses nicotine dependence full code Plan: Possible gastrointestinal bleeding consultation with gastroenterology, general surgery for recommendations and treatment plan. Serial hemoglobin and hematocrit's ; Protonix 40 mg IV daily anemia possibly due to gastrointestinal bleeding consultation with gastroenterology and general surgery for recommendations and treatment plan diabetes mellitus type II insulin sliding scale monitor vital signs and diagnostic testing nothing per mouth awaiting recommendations from gastroenterology and general surgery medical management consultation with critical care for multiple comorbidities further recommendations to come based on patient's clinical condition Time with Patient: Greater than 30
--- NOTE | 2021-02-21 07:19 | XR ---
EXAMINATION TYPE: XR chest 1V portable DATE OF EXAM: 02/21/2021 COMPARISON: 02/20/2021. HISTORY: Shortness of breath. TECHNIQUE: Single frontal view of the chest is obtained. FINDINGS: There is no focal air space opacity, pleural effusion, or pneumothorax seen. The cardiac silhouette size is within normal limits. The osseous structures are intact. IMPRESSION: No acute process.
[2021-02-21] MEDS: PANTOPRAZOLE 40 MG/10 ML VIAL IVP SCH (08:53)
[2021-02-21] MEDS: INSULIN ASPART (NovoLOG) 100 UNIT/ML VIAL SQ SCH ×4 (08:53→20:10)
[2021-02-21 09:08] LABS: Anisocytosis Slight; Basophils % (A) 0 %; Eosinophils # (A) 0.1 k/uL (0-0.7); Eosinophils % (A) 2 %; HCT 24.5 % (34.0-46.0); HGB 7.1 gm/dL (11.4-16.0); Hypochromasia Marked; Lymphocytes # (A) 1.4 k/uL (1.0-4.8); Lymphocytes % (A) 21 %; MCH 27.1 pg (25.0-35.0); MCHC 29.2 g/dL (31.0-37.0); MCV 92.9 fL (80.0-100.0); Mean Platelet Volume 8.3; Monocytes # (A) 0.2 k/uL (0-1.0); Monocytes % (A) 3 %; Neutrophils # (A) 5.1 k/uL (1.3-7.7); Neutrophils % (A) 73 %; Platelet Count 250 k/uL (150-450); Poikilocytosis Moderate; RBC 2.63 m/uL (3.80-5.40); RDW 17.4 % (11.5-15.5)
[2021-02-21] MEDS ORDERED: bisacodyL 5 MG TABLET.DR PO STA (11:22)
--- NOTE | 2021-02-21 11:41 | ECHOF ---
Referral Reason:heart MEASUREMENTS -------- HEIGHT: 175.3 cm WEIGHT: 104.3 kg BP: IVSd: 1.2 cm (0.6 - 1.1) LVIDd: 4.6 cm (3.9 - 5.3) LVPWd: 1.3 cm (0.6 - 1.1) IVSs: 1.4 cm LVIDs: 3.8 cm LVPWs: 1.3 cm Ao Diam: 3.5 cm (2.0 - 3.7) AV Cusp: 2.2 cm (1.5 - 2.6) MV EXCURSION: 19.436 mm (> 18.000) MV EF SLOPE: 102 mm/s (70 - 150) EPSS: 0.3 cm MV E Anshul: 0.86 m/s MV DecT: 259 ms MV A Anshul: 1.13 m/s MV E/A Ratio: 0.76 RAP: 5.00 mmHg RVSP: 14.24 mmHg FINDINGS -------- Sinus rhythm. This was a techncally difficult study with suboptimal views, , Definity utilized for enhancement of i mages. The left ventricular size is normal. There is mild concentric left ventricular hypertrophy. Overa ll left ventricular systolic function is low-normal with, an EF between 50 - 55 %. The right ventricle is normal in size. The left atrial size is normal. The right atrial size is normal. xx ml of Lumason was utilized for enhancement of images. The aortic valve is trileaflet, and appears structurally normal. No aortic stenosis or regurgitation. Mild mitral regurgitation is present. Mild tricuspid regurgitation present. Right ventricular systolic pressure is normal at < 35 mmHg. There is no pulmonic regurgitation present. The aortic root size is normal. There is no pericardial effusion. CONCLUSIONS -------- 1. This was a techncally difficult study with suboptimal views, , Definity utilized for enhancement o f images. 2. The left ventricular size is normal. 3. There is mild concentric left ventricular hypertrophy. 4. Overall left ventricular systolic function is low-normal with, an EF between 50 - 55 %. 5. The right ventricle is normal in size. 6. The left atrial size is normal. 7. The right atrial size is normal. 8. xx ml of Lumason was utilized for enhancement of images. 9. The aortic valve is trileaflet, and appears structurally normal. No aortic stenosis or regurgitati on. 10. Mild mitral regurgitation is present. 11. Mild tricuspid regurgitation present. 12. There is no pulmonic regurgitation present. 13. The aortic root size is normal. 14. There is no pericardial effusion. [employer]: Silvia Adame RDCS
[2021-02-21] MEDS: IOPAMIDOL CONTRAST (ORAL USE) VIAL PO PRN ×2 (11:46→11:47)
[2021-02-21 12:00] LABS: Glucose,Whole Blood 191 mg/dL (75-99)
--- NOTE | 2021-02-21 12:10 | P.CRDCN ---
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 She follows in the office with Dr. Pizarro. We have been asked to see in consultation for possible cardiac component to patient's symptoms. Patient presents to the emergency department with complaints of generalized weakness, She states that she was very weak at home to the point that she could not lift her head. Patient is on Xarelto 20mg nightly anticoagulation therapy per vascular surgeon due to severe peripheral artery disease. On admission hemoglobin 5.6. Patient recieved 2 units of PRBCs. Hemoglobin 7.1 this morning. Patient states she continues to feel weak but it has improved. She states she has had stents placed in her legs before. She denies history of heart failure, coronary artery disease, [place], stroke. She denies having a cardiac catheterization or a cardiac workup previously. She denies alcohol use. Denies family of cardiac disease. She denies chest pain, palpitations, shortness of breath, lighthea dedness or dizziness. DIAGNOSTICS EKG reveals sinus rhythm HR 100, no significant ST-T wave abnormalities Telemetry tracings indicate sinus mechanism HR 80-100. Chest xray no acute cardiopulmonary process Laboratory reviewed, troponin negative x 1, WBC 7, hemoglobin 7.1, platelets 250, sodium 140, potassium 3.8, serum creatinine 0.7, BUN 23, magnesium 1.8 Current home daily medications include lisinopril 40mg daily, Xarelto 20mg nightly, potassium chloride 20meq daily, plavix 75mg daily, atorvastaatin 20mg nightly, chlorthalidone 25mg daily, cilostazol 100mg BID, ferrous sulfate 325mg BID, Lyrica, metformin and insulin REVIEW OF SYSTEMS At the time of my exam: CONSTITUTIONAL: +weakness Denies fever or chills. CARDIOVASCULAR: Denies chest pain, shortness of breath, orthopnea, PND or pa lpitations. RESPIRATORY: Denies cough. GASTROINTESTINAL: Denies abdominal pain, diarrhea, constipation, nausea or vomiting. MUSCULOSKELETAL: Denies myalgias. NEUROLOGIC: Denies numbness, tingling, headacbe or weakness. ENDOCRINE: Denies fatigue, weight change, polydipsia or polyurina. GENITOURINARY: Denies burning, hematuria or urgency with micturation. HEMATOLOGIC: Denies history of anemia or bleeding. PHYSICAL EXAMINATION Blood pressure 114/53 heart rate 92 afebrile and maintaining oxygen saturation 100% on room air CONSTITUTIONAL: No apparent distress. HEENT: Head is normocephalic. Pupils are equal, round. Sclerae anicteric. Mucous membranes of the mouth are moist. No JVD. No carotid bruit. CHEST EXAMINATION: Lungs are clear to auscultation. No chest wall tenderness is noted on palpation or with deep breathing. HEART EXAMINATION: Regular rate and rhythm. S1, S2 heard. No murmurs, gallops or rub. ABDOMEN: Soft, nontender. Positive bowel sounds. EXTREMITIES: Right lower extremity BKA 2+ peripheral pulses, no lower extremity edema and no calf tenderness. NEUROLOGIC EXAMINATION: Patient is awake, alert and oriented x3. 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 No further cardiology workup at this time Nurse Practitioner note has been reviewed, I agree with a documented findings and plan of care. Patient was seen and examined. Past Medical History Past Medical History: Diabetes Mellitus, Hyperlipidemia, Hypertension Additional Past Medical History / Comment(s): anemia History of Any Multi-Drug Resistant Organisms: None Reported Past Surgical History: Orthopedic Surgery Additional Past Surgical History / Comment(s): neck fusion. rt below knee amputaion Past Psychological History: No Psychological Hx Reported Smoking Status: Never smoker Past Alcohol Use History: None Reported Past Drug Use History: None Reported - Past Family History Mother History Unknown: Yes Medications and Allergies Home Medications Medication Instructions Recorded Confirmed Type Atorvastatin [Lipitor] 20 mg PO HS 02/12/21 02/20/21 History Chlorthalidone 25 mg PO DAILY 02/12/21 02/20/21 History Cilostazol [Pletal] 100 mg PO BID 02/12/21 02/20/21 History Clopidogrel [Plavix] 75 mg PO DAILY 02/12/21 02/20/21 History Docusate [Colace] 100 mg PO DAILY 02/12/21 02/20/21 History Ferrous Sulfate [Feosol] 325 mg PO BID 02/12/21 02/20/21 History INSULIN LISPRO (humaLOG) [humaLOG] 14 units SQ AC-TID 02/12/21 02/20/21 History Insulin Glargine,Hum.rec.anlog 20 unit SQ DAILY 02/12/21 02/20/21 History [Lantus Solostar] Insulin Glargine,Hum.rec.anlog 30 unit SQ HS 02/12/21 02/20/21 History [Lantus Solostar] Pantoprazole Sodium [Protonix] 40 mg PO DAILY 02/12/21 02/20/21 History Potassium Chloride [Klor-Con 20] 20 meq PO DAILY 02/12/21 02/20/21 History Pregabalin [Lyrica] 150 mg PO BID 02/12/21 02/20/21 History Rivaroxaban [Xarelto] 20 mg PO HS 02/12/21 02/20/21 History lisinopriL 40 mg PO DAILY 02/12/21 02/20/21 History metFORMIN HCL 1,000 mg PO BID 02/12/21 02/20/21 History oxyCODONE-APAP 10-325MG [Percocet 1 tab PO Q8HR PRN 02/12/21 02/20/21 History 10-325 mg] Allergies Allergy/AdvReac Type Severity Reaction Status Date / Time heparin Allergy Anaphylaxis Verified 02/20/21 15:54 morphine Allergy Anaphylaxis Verified 02/20/21 15:54 tree nut Allergy Nausea & Verified 02/20/21 15:54 Vomiting & Diarrhea Physical Exam Vitals: Vital Signs Temp Pulse Pulse Resp BP BP Pulse Ox 02/21/21 02:00 88 17 02/21/21 00:00 97.6 F 90 18 108/60 100 02/20/21 22:03 98.7 F 98 19 107/48 100 02/20/21 21:13 98.5 F 92 18 91/38 100 02/20/21 20:31 98.6 F 101 H 18 101/50 96 02/20/21 20:01 98.3 F 90 18 103/48 97 02/20/21 20:00 18 02/20/21 19:51 98.8 F 101 H 20 86/59 96 02/20/21 19:49 98.8 F 101 H 20 86/59 96 02/20/21 19:24 98 F 69 16 121/78 02/20/21 18:00 95 18 91/51 100 02/20/21 17:31 98 02/20/21 17:21 98.5 F 82 16 116/62 02/20/21 16:51 98 F 93 18 112/71 02/20/21 16:41 98.2 F 90 16 108/57 02/20/21 16:00 93 20 103/54 100 02/20/21 14:33 98 20 112/66 100 02/20/21 12:43 98.1 F 98 22 105/46 100 Intake and Output 02/20/21 02/21/21 02/21/21 22:59 06:59 14:59 Intake Total 620 Output Total 400 Balance 620 -400 Intake: Blood Product 620 Rc As-1 Unit 310 [id number] Rc As-1 Unit 310 [id number] Output: Urine 400 Other: Voiding Method Bedpan Bedpan # Voids 1 1 Weight 99.79 kg 98 kg Results 02/21/21 08:39 02/21/21 04:36 Cardiac Enzymes 02/20/21 02/20/21 02/21/21 Range/Units 15:08 15:20 04:36 AST 19 17 (14-36) U/L Troponin I <0.012 (0.000-0.034) ng/mL Coagulation 02/20/21 02/21/21 Range/Units 15:20 04:36 PT 12.4 H 10.0 (9.0-12.0) sec APTT 20.1 L 20.9 L (22.0-30.0) sec CBC 02/20/21 02/21/21 Range/Units 15:08 04:36 WBC 7.6 7.3 (3.8-10.6) k/uL RBC 1.92 L 2.64 L (3.80-5.40) m/uL Hgb 5.6 L* D 7.7 L D (11.4-16.0) gm/dL Hct 18.8 L* 24.5 L (34.0-46.0) % Plt Count 296 255 (150-450) k/uL Comprehensive Metabolic Panel 02/20/21 02/21/21 Range/Units 15:20 04:36 Sodium 141 140 (137-145) mmol/L Potassium 3.6 3.8 (3.5-5.1) mmol/L Chloride 108 H 108 H (98-107) mmol/L Carbon Dioxide 24 26 (22-30) mmol/L BUN 24 H 23 H (7-17) mg/dL Creatinine 0.72 0.74 (0.52-1.04) mg/dL Glucose 89 217 H (74-99) mg/dL Calcium 9.7 9.0 (8.4-10.2) mg/dL AST 19 17 (14-36) U/L ALT 11 9 (4-34) U/L Alkaline Phosphatase 74 77 (38-126) U/L Total Protein 6.6 5.9 L (6.3-8.2) g/dL Albumin 3.7 3.4 L (3.5-5.0) g/dL Current Medications Generic Name Dose Route Start Last Admin Trade Name Freq PRN Reason Stop Dose Admin Insulin Aspart 0 unit 02/20/21 21:00 02/20/21 23:57 Insulin Aspart (Novolog) 100 Unit/Ml Vial SQ 3 unit ACHS ROSENDO Administration Protocol Miscellaneous Information 1 each 02/20/21 21:14 Magnesium Replacement Protocol 1 Each Misc MISCELLANE DAILY PRN Per Protocol Protocol Pantoprazole Sodium 40 mg 02/21/21 09:00 Pantoprazole 40 Mg/10 Ml Vial IVP DAILY ROSENDO Intake and Output 02/20/21 02/21/21 02/21/21 22:59 06:59 14:59 Intake Total 620 Output Total 400 Balance 620 -400 Intake: Blood Product 620 Rc As-1 Unit 310 [id number] Rc As-1 Unit 310 [id number] Output: Urine 400 Other: Voiding Method Bedpan Bedpan # Voids 1 1 Weight 99.79 kg 98 kg 02/21/21 04:36 02/21/21 04:36
--- NOTE | 2021-02-21 13:43 | CT ---
EXAMINATION TYPE: CT abdomen pelvis w con DATE OF EXAM: 02/21/2021 COMPARISON: None HISTORY: abdominal pain CT DLP: 1456.9 mGycm CONTRAST: CT scan of the abdomen and pelvis is performed with Oral Contrast and with IV Contrast, patient injec karoline with 100 mL of Isovue 300. FINDINGS: LUNG BASES-: No visible nodule. No infiltrate. LIVER/GB: No calcified gallstones. No space occupying hepatic lesion. Biliary tree is of normal ca liber. PANCREAS: No inflammation. No distinct mass. SPLEEN: No splenic enlargement. No lesion seen. ADRENALS: No nodule. No thickening. KIDNEYS/BLADDER: No hydronephrosis. 3 mm calculus in the upper pole left kidney. No distinct renal m ass. Urinary bladder grossly unremarkable. BOWEL: Normal appendix. Normal bowel caliber. No inflammation. GENITAL ORGANS: Calcified leiomyoma. LYMPH NODES: No greater than 1cm abdominal or pelvic lymph nodes are appreciated. AORTA: No significant abnormality. OSSEOUS STRUCTURES: No significant abnormality is seen. OTHER: No significant additional abnormality is seen. IMPRESSION: 1. Nonobstructing calculus left kidney. Examination is otherwise within normal limits.
--- NOTE | 2021-02-21 15:57 | P.GSCN ---
<Grecia Oseguera - Last Filed: 02/21/21 15:41> History of Present Illness Consult date: 02/21/21 History of present illness: CHIEF COMPLAINT: Generalized weakness HISTORY OF PRESENT ILLNESS: This is a 60-year-old female with a known past medical history of severe peripheral arterial disease and peripheral vascular disease with history of femoral bypasses and stents in which she is anticoagula karoline with Plavix and Xarelto. Her last dose of these medications were yesterday. She also has a history of diabetes, hyperlipidemia and hypertension. She has a surgical history of cholecystectomy and also a right BKA. Patient presented to the hospital with complaints of generalized weakness, shortness of breath and fatigue. Patient had recently been hospitalized at [facility] for a GI bleed but had left AGAINST MEDICAL ADVICE. Per her chart her hemoglobin at that time was 8.0. Initially she held her anticoagulation but her vascular surgeon due to her severe peripheral arterial disease restarted her anticoagulation. Patient denies any blood in her stools or any black stools. She was found to have a hemoglobin of 5.6. She has received 2 units of blood hemoglobin came up to 7.7. Earlier this morning patient had an episode of mid abdominal pain that was sharp when she went to get up out of bed. The pain resolved suddenly. She did have one episode of vomiting yesterday. She reports no blood in her emesis. Denies any fever chills or sweats. Denies any change in her bowel habits. Surgical service was consulted in regards to GI bleed. Patient is also being followed by GI service and they have planned for EGD and colonoscopy tomorrow. Patient denies any prior history of EGD or colonoscopy. PAST MEDICAL HISTORY: See list. PAST SURGICAL HISTORY: See list. MEDICATIONS: See list. ALLERGIES: See list. SOCIAL HISTORY: No illicit drug use. REVIEW OF SYSTEMS: CONSTITUTIONAL: Denies fever or chills. HEENT: Denies blurred vision, vision changes, or eye pain. Denies hemoptysis ENDOCRINE: Denies heat or cold intolerance. CARDIOVASCULAR: Denies chest pain or pressure. RESPIRATORY: No shortness of breath. GASTROINTESTINAL: Please refer to HPI NEURO: Denies history of seizures. PSYCH: No depression or suicidal ideation HEMATOLOGIC: Denies bleeding disorders. LYMPHATIC: The patient denies any lumps and bumps around the neck. GENITOURINARY: Denies any blood in urine or increased urinary frequency. MUSCULOSKELETAL: Denies myalgias. Denies joint swelling. Denies decreased range of motion beyond patients baseline. SKIN: Denies pruitis. Denies rash. PHYSICAL EXAM: VITAL SIGNS: Reviewed GENERAL: Well-developed in no acute distress. HEENT: No sclera icterus. Extraocular movements grossly intact. Moist buccal mucosa. Head is atraumatic, normocephalic. Hears conversational speech. No nasal drainage. NECK: Supple without lymphadenopathy. CHEST: Non-labored respirations and equal bilateral excursions. CARDIOVASCULAR: Palpable 2+ radial pulses. ABDOMEN: Soft. Nondistended. Nontender MUSCULOSKELETAL: No clubbing or cyanosis. NEUROLOGIC: No focal or lateralizing signs. Cranial nerves II through XII grossly intact. PSYCH: Appropriate affect. Alert and oriented to person, place and time. SKIN: Well perfused. Good skin turgor. LABORATORY DATA: WBC 7.0 hemoglobin 5.6 up to 7.7 and is now at 7.1 Platelets 250 sodium 140 creatinine 0.74 magnesium 1.8 LFTs normal albumin 3.4 Covid negative IMAGING: Computed tomography scan abdomen and pelvis shows nonobstructing calculus left kidney. Examination is otherwise within normal limits ASSESSMENT: 1. Symptomatic anemia status post 2 units of blood. Concerns for GI blood loss 2. Generalized weakness 3. Diabetes mellitus type 2 4. Peripheral vascular disease disease and peripheral arterial disease. Prior history of femoral bypasses. 5. Hypertension 6. 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 Signing provider agrees with the documented findings, assessment, and plan of care. Past Medical History Past Medical History: Diabetes Mellitus, Hyperlipidemia, Hypertension Additional Past Medical History / Comment(s): anemia History of Any Multi-Drug Resistant Organisms: None Reported Past Surgical History: Orthopedic Surgery Additional Past Surgical History / Comment(s): neck fusion. rt below knee amputaion Past Psychological History: No Psychological Hx Reported Smoking Status: Never smoker Past Alcohol Use History: None Reported Past Drug Use History: None Reported - Past Family History Mother History Unknown: Yes Medications and Allergies Home Medications Medication Instructions Recorded Confirmed Type Atorvastatin [Lipitor] 20 mg PO HS 02/12/21 02/20/21 History Chlorthalidone 25 mg PO DAILY 02/12/21 02/20/21 History Cilostazol [Pletal] 100 mg PO BID 02/12/21 02/20/21 History Docusate [Colace] 100 mg PO DAILY 02/12/21 02/20/21 History Ferrous Sulfate [Iron (65 MG 325 mg PO BID 02/12/21 02/20/21 History Elemental)] INSULIN LISPRO (humaLOG) [humaLOG] 14 units SQ AC-TID 02/12/21 02/20/21 History Insulin Glargine,Hum.rec.anlog 20 unit SQ DAILY 02/12/21 02/20/21 History [Lantus Solostar] Insulin Glargine,Hum.rec.anlog 30 unit SQ HS 02/12/21 02/20/21 History [Lantus Solostar] Pantoprazole Sodium [Protonix] 40 mg PO DAILY 02/12/21 02/20/21 History Potassium Chloride [Klor-Con 20] 20 meq PO DAILY 02/12/21 02/20/21 History Pregabalin [Lyrica] 150 mg PO BID 02/12/21 02/20/21 History lisinopriL 40 mg PO DAILY 02/12/21 02/20/21 History oxyCODONE-APAP 10-325MG [Percocet 1 tab PO Q8HR PRN 02/12/21 02/20/21 History 10-325 mg] Allergies Allergy/AdvReac Type Severity Reaction Status Date / Time heparin Allergy Anaphylaxis Verified 02/20/21 15:54 morphine Allergy Anaphylaxis Verified 02/20/21 15:54 tree nut Allergy Nausea & Verified 02/20/21 15:54 Vomiting & Diarrhea Surgical - Exam Vital Signs Temp Pulse Resp BP Pulse Ox 98.1 F 98 22 105/46 100 02/20/21 12:43 02/20/21 12:43 02/20/21 12:43 02/20/21 12:43 02/20/21 12:43 Results - Labs 02/21/21 08:39 02/21/21 04:36 Abnormal Lab Results - Last 24 Hours (Table) 02/20/21 02/20/21 02/20/21 Range/Units 15:08 15:08 15:20 RBC 1.92 L (3.80-5.40) m/uL Hgb 5.6 L* D (11.4-16.0) gm/dL Hct 18.8 L* (34.0-46.0) % MCHC 30.3 L (31.0-37.0) g/dL RDW 16.6 H (11.5-15.5) % PT 12.4 H (9.0-12.0) sec INR 1.2 H (<1.2) APTT 20.1 L (22.0-30.0) sec Chloride (98-107) mmol/L BUN (7-17) mg/dL Glucose (74-99) mg/dL POC Glucose (mg/dL) (75-99) mg/dL Total Protein (6.3-8.2) g/dL Albumin (3.5-5.0) g/dL Crossmatch See Detail 02/20/21 02/20/21 02/21/21 Range/Units 15:20 21:48 04:36 RBC (3.80-5.40) m/uL Hgb (11.4-16.0) gm/dL Hct (34.0-46.0) % MCHC (31.0-37.0) g/dL RDW (11.5-15.5) % PT (9.0-12.0) sec INR (<1.2) APTT (22.0-30.0) sec Chloride 108 H 108 H (98-107) mmol/L BUN 24 H 23 H (7-17) mg/dL Glucose 217 H (74-99) mg/dL POC Glucose (mg/dL) 240 H (75-99) mg/dL Total Protein 5.9 L (6.3-8.2) g/dL Albumin 3.4 L (3.5-5.0) g/dL Crossmatch 02/21/21 02/21/21 02/21/21 Range/Units 04:36 04:36 06:13 RBC 2.64 L (3.80-5.40) m/uL Hgb 7.7 L D (11.4-16.0) gm/dL Hct 24.5 L (34.0-46.0) % MCHC (31.0-37.0) g/dL RDW 17.3 H (11.5-15.5) % PT (9.0-12.0) sec INR (<1.2) APTT 20.9 L (22.0-30.0) sec Chloride (98-107) mmol/L BUN (7-17) mg/dL Glucose (74-99) mg/dL POC Glucose (mg/dL) 229 H (75-99) mg/dL Total Protein (6.3-8.2) g/dL Albumin (3.5-5.0) g/dL Crossmatch 02/21/21 02/21/21 Range/Units 08:39 11:58 RBC 2.63 L (3.80-5.40) m/uL Hgb 7.1 L (11.4-16.0) gm/dL Hct 24.5 L (34.0-46.0) % MCHC 29.2 L (31.0-37.0) g/dL RDW 17.4 H (11.5-15.5) % PT (9.0-12.0) sec INR (<1.2) APTT (22.0-30.0) sec Chloride (98-107) mmol/L BUN (7-17) mg/dL Glucose (74-99) mg/dL POC Glucose (mg/dL) 191 H (75-99) mg/dL Total Protein (6.3-8.2) g/dL Albumin (3.5-5.0) g/dL Crossmatch Diabetes panel 02/20/21 02/21/21 Range/Units 15:20 04:36 Sodium 141 140 (137-145) mmol/L Potassium 3.6 3.8 (3.5-5.1) mmol/L Chloride 108 H 108 H (98-107) mmol/L Carbon Dioxide 24 26 (22-30) mmol/L BUN 24 H 23 H (7-17) mg/dL Creatinine 0.72 0.74 (0.52-1.04) mg/dL Glucose 89 217 H (74-99) mg/dL Calcium 9.7 9.0 (8.4-10.2) mg/dL AST 19 17 (14-36) U/L ALT 11 9 (4-34) U/L Alkaline Phosphatase 74 77 (38-126) U/L Total Protein 6.6 5.9 L (6.3-8.2) g/dL Albumin 3.7 3.4 L (3.5-5.0) g/dL Calcium panel 02/20/21 02/21/21 Range/Units 15:20 04:36 Calcium 9.7 9.0 (8.4-10.2) mg/dL Albumin 3.7 3.4 L (3.5-5.0) g/dL Pituitary panel 02/20/21 02/21/21 Range/Units 15:20 04:36 Sodium 141 140 (137-145) mmol/L Potassium 3.6 3.8 (3.5-5.1) mmol/L Chloride 108 H 108 H (98-107) mmol/L Carbon Dioxide 24 26 (22-30) mmol/L BUN 24 H 23 H (7-17) mg/dL Creatinine 0.72 0.74 (0.52-1.04) mg/dL Glucose 89 217 H (74-99) mg/dL Calcium 9.7 9.0 (8.4-10.2) mg/dL Adrenal panel 02/20/21 02/21/21 Range/Units 15:20 04:36 Sodium 141 140 (137-145) mmol/L Potassium 3.6 3.8 (3.5-5.1) mmol/L Chloride 108 H 108 H (98-107) mmol/L Carbon Dioxide 24 26 (22-30) mmol/L BUN 24 H 23 H (7-17) mg/dL Creatinine 0.72 0.74 (0.52-1.04) mg/dL Glucose 89 217 H (74-99) mg/dL Calcium 9.7 9.0 (8.4-10.2) mg/dL Total Bilirubin 0.2 0.3 (0.2-1.3) mg/dL AST 19 17 (14-36) U/L ALT 11 9 (4-34) U/L Alkaline Phosphatase 74 77 (38-126) U/L Total Protein 6.6 5.9 L (6.3-8.2) g/dL Albumin 3.7 3.4 L (3.5-5.0) g/dL <Babrara Christie N - Last Filed: 04/28/21 22:20> History of Present Illness History of present illness: Recommend upper lower endoscopy per GI. CHIEF COMPLAINT: Acute anemia HISTORY OF PRESENT ILLNESS: The patient is a 60 year old female who presents with acute anemia hemoglobin less than 6.0 with pre-existing history of peripheral vascular occlusive disease including right lshvn-eko-kcno amputation. Patient was previously hospitalized at outside facility and left AGAINST MEDICAL ADVICE less than 5 days ago. She presented to the emergency room with symptoms of anemia. She has been admitted secondary to anemia without source of bleeding. Patient is being seen by the GI service. PAST MEDICAL HISTORY: See list and reviewed PAST SURGICAL HISTORY: See list and reviewed MEDICATIONS: See list and reviewed ALLERGIES: See list and reviewed SOCIAL HISTORY: See list and reviewed FAMILY HISTORY: See list and reviewed REVIEW OF ORGAN SYSTEMS: CONSTITUTIONAL: No fevers or chills. No recent weight loss. EYES: Denies any trouble with vision. No glasses. HEENT: No difficulties with hearing. No nosebleeds. No difficulty swallowing. RESPIRATORY: Denies pneumonia. Denies any troubles with breathing or dyspnea on exertion. CARDIOVASCULAR: Has peripheral vascular occlusive disease. Hyperlipidemia. Hypertensive heart disease. History of lower extremity stents. GASTROINTESTINAL: Denies fatty food intolerance. Denies change in bowel habits and gas bloat. GENITOURINARY: Denies any blood in urine or increased urinary frequency. NEUROLOGICAL: Has numbness or tingling along the distal extremities. No seizure disorders or headaches. MUSCULOSKELETAL: Has peripheral vascular occlusive disease including right cwvji-qny-wbqe amputation. Has chronic pain syndrome. SKIN: No current skin cancer. No rash. PSYCHIATRIC: Denies current depression or suicidal thoughts. ENDOCRINE: Denies current thyroid disorders. Has diabetes type 2 with comp lications of peripheral neuropathy and peripheral vascular occlusive disease. Has diabetes insulin-dependent. HEME/LYMPHATIC: Has anemia. On blood thinners. On antiplatelet therapy. ALLERGY/IMMUNOLOGY: No immunoglobulin therapy. No immune deficiencies. BREAST: Denies current breast lumps, pain or nipple discharge. PHYSICAL EXAM: VITALS: Reviewed CONSTITUTIONAL: Well developed and in no acute distress. EYES: Conjuctivae without sclera icterus. Extraocular movements grossly intact. HEAD, EARS, NOSE, THROAT: Moist buccal mucosa. Head is atraumatic, normocephalic. Hears conversational speech. No nasal drainage. NECK: Supple. No JV distention. No thyroidomegaly. RESPIRATORY: Non-labored respirations and equal bilateral excursions. No gross wheezes. CARDIOVASCULAR: Regular rate and rhythm. Extremities without moderate edema. Palpable 2+ radial pulses. ABDOMEN: No peritonitis. Nontender. LYMPH: No neck lymphadenopathy. MUSCULOSKELETAL: Nail and fingers with good capillary refill. Has right cczrl-fhi-qlec amputation SKIN: Warm and well perfused with good skin turgor. NEUROLOGIC: Cranial nerves II through XII grossly intact. Sensation upper and extremities intact. No focal or lateralizing signs. PSYCH: Appropriate affect. Alert and oriented to person, place and time. Displays appropriate insight. CLINCAL LABS: Reviewed. Initial hemoglobin 5.6. EKG: Abnormal with ST abnormality, digitalis effect STUDIES: Chest x-ray reviewed without pneumothorax. This is my independent interpretation. ASSESSMENT: 1. Acute anemia 2. Peripheral vascular occlusive disease 3. Chronic anticoagulation 4. History of right qkcgg-nkz-rxao amputation 5. Diabetes type 2, insulin-dependent 6. Chronic antiplatelet therapy 7. Status post blood transfusion PLAN: 1. Recommend GI consultation for upper and lower endoscopy regarding anemia 2. Patient is elevated risk for complications due to peripheral vascular occlusive disease ADVANCE DIRECTIVE: Thank you for this kind consultation. Surgical - Exam Vital Signs Temp Pulse Resp BP Pulse Ox 98.1 F 98 22 105/46 100 02/20/21 12:43 02/20/21 12:43 02/20/21 12:43 02/20/21 12:43 02/20/21 12:43 Results - Labs 02/22/21 08:13 02/22/21 08:13 Abnormal Lab Results - Last 24 Hours (Table) 02/20/21 02/20/21 02/21/21 Range/Units 15:08 21:48 04:36 RBC (3.80-5.40) m/uL Hgb (11.4-16.0) gm/dL Hct (34.0-46.0) % MCHC (31.0-37.0) g/dL RDW (11.5-15.5) % APTT (22.0-30.0) sec Chloride 108 H (98-107) mmol/L BUN 23 H (7-17) mg/dL Glucose 217 H (74-99) mg/dL POC Glucose (mg/dL) 240 H (75-99) mg/dL Total Protein 5.9 L (6.3-8.2) g/dL Albumin 3.4 L (3.5-5.0) g/dL Crossmatch See Detail 02/21/21 02/21/21 02/21/21 Range/Units 04:36 04:36 06:13 RBC 2.64 L (3.80-5.40) m/uL Hgb 7.7 L D (11.4-16.0) gm/dL Hct 24.5 L (34.0-46.0) % MCHC (31.0-37.0) g/dL RDW 17.3 H (11.5-15.5) % APTT 20.9 L (22.0-30.0) sec Chloride (98-107) mmol/L BUN (7-17) mg/dL Glucose (74-99) mg/dL POC Glucose (mg/dL) 229 H (75-99) mg/dL Total Protein (6.3-8.2) g/dL Albumin (3.5-5.0) g/dL Crossmatch 02/21/21 02/21/21 Range/Units 08:39 11:58 RBC 2.63 L (3.80-5.40) m/uL Hgb 7.1 L (11.4-16.0) gm/dL Hct 24.5 L (34.0-46.0) % MCHC 29.2 L (31.0-37.0) g/dL RDW 17.4 H (11.5-15.5) % APTT (22.0-30.0) sec Chloride (98-107) mmol/L BUN (7-17) mg/dL Glucose (74-99) mg/dL POC Glucose (mg/dL) 191 H (75-99) mg/dL Total Protein (6.3-8.2) g/dL Albumin (3.5-5.0) g/dL Crossmatch Diabetes panel 02/21/21 Range/Units 04:36 Sodium 140 (137-145) mmol/L Potassium 3.8 (3.5-5.1) mmol/L Chloride 108 H (98-107) mmol/L Carbon Dioxide 26 (22-30) mmol/L BUN 23 H (7-17) mg/dL Creatinine 0.74 (0.52-1.04) mg/dL Glucose 217 H (74-99) mg/dL Calcium 9.0 (8.4-10.2) mg/dL AST 17 (14-36) U/L ALT 9 (4-34) U/L Alkaline Phosphatase 77 (38-126) U/L Total Protein 5.9 L (6.3-8.2) g/dL Albumin 3.4 L (3.5-5.0) g/dL Calcium panel 02/21/21 Range/Units 04:36 Calcium 9.0 (8.4-10.2) mg/dL Albumin 3.4 L (3.5-5.0) g/dL Pituitary panel 02/21/21 Range/Units 04:36 Sodium 140 (137-145) mmol/L Potassium 3.8 (3.5-5.1) mmol/L Chloride 108 H (98-107) mmol/L Carbon Dioxide 26 (22-30) mmol/L BUN 23 H (7-17) mg/dL Creatinine 0.74 (0.52-1.04) mg/dL Glucose 217 H (74-99) mg/dL Calcium 9.0 (8.4-10.2) mg/dL Adrenal panel 02/21/21 Range/Units 04:36 Sodium 140 (137-145) mmol/L Potassium 3.8 (3.5-5.1) mmol/L Chloride 108 H (98-107) mmol/L Carbon Dioxide 26 (22-30) mmol/L BUN 23 H (7-17) mg/dL Creatinine 0.74 (0.52-1.04) mg/dL Glucose 217 H (74-99) mg/dL Calcium 9.0 (8.4-10.2) mg/dL Total Bilirubin 0.3 (0.2-1.3) mg/dL AST 17 (14-36) U/L ALT 9 (4-34) U/L Alkaline Phosphatase 77 (38-126) U/L Total Protein 5.9 L (6.3-8.2) g/dL Albumin 3.4 L (3.5-5.0) g/dL
[2021-02-21 16:18] LABS: Anisocytosis Slight; HCT 28.5 % (34.0-46.0); Hypochromasia Marked; MCH 29.6 pg (25.0-35.0); MCHC 32.8 g/dL (31.0-37.0); MCV 90.4 fL (80.0-100.0); Mean Platelet Volume 8.5; Platelet Count 234 k/uL (150-450); Poikilocytosis Marked; RBC 3.15 m/uL (3.80-5.40); RDW 17.2 % (11.5-15.5); WBC 7.6 k/uL (3.8-10.6)
[2021-02-21 16:22] LABS: HGB 9.3 gm/dL (11.4-16.0)
[2021-02-21] MEDS ORDERED: PEG 3350-NA SULF,BICARB,CL/KCL 4,000 ML BOTTLE PO ONE (17:00)
[2021-02-21 17:14] LABS: Glucose,Whole Blood 153 mg/dL (75-99)
--- NOTE | 2021-02-21 19:02 | CONS ---
CONSULTATION This is a 60-year-old pleasant female. Patient came through the emergency room with history of weakness and shortness of breath, and the patient had a workup. Her hemoglobin was 5.6. She received 3 units of blood transfusion. Today hemoglobin is 7.1. The patient is scheduled to have upper and lower endoscopy tomorrow. The patient has been on Xarelto, which has been stopped. MEDICAL HISTORY: Patient has history of diabetes mellitus, hyperlipidemia, hypertension. SURGICAL HISTORY: Patient had a right below-knee amputation done in the past. The patient also had a C- section. PHYSICAL EXAMINATION: Patient was seen in her room, lying comfortably in bed. NECK: Supple. Trachea central. CHEST: Clear on auscultation. ABDOMEN: Soft, nontender. VASCULAR EXAMINATION: Brachial, radial and femoral pulses are 1+ on the left side. Right below-knee stump is healed. The patient had an extensive workup, including CT of the abdomen. Aorta was found to be normal. No active bleeding noted. IMPRESSION: Patient came with history of low hemoglobin and is scheduled to have an upper and lower endoscopy. At this point, from the vascular point of view, there is no evidence of any acute concern. Aorta was found to be normal and stump site has healed well. No ischemic changes are noted in the left lower extremity. Will follow with you. MMODL / IJN: [id number] /
[2021-02-21 20:00] LABS: Glucose,Whole Blood 143 mg/dL (75-99)
[2021-02-21 23:16] VITALS: RESP 16
[2021-02-22 00:33] LABS: Glucose,Whole Blood 100 mg/dL (75-99)
[2021-02-22] MEDS ORDERED: DEXTROSE 50% SYRINGE 50 ML IVP ONE (00:38)
[2021-02-22] MEDS ORDERED: ORPHENADRINE 30 MG/ML 2 ML VIAL IVP ONE (00:45)
[2021-02-22 00:59] LABS: Glucose,Whole Blood 138 mg/dL (75-99)
[2021-02-22 05:54] LABS: Glucose,Whole Blood 144 mg/dL (75-99)
[2021-02-22] MEDS: INSULIN ASPART (NovoLOG) 100 UNIT/ML VIAL SQ SCH ×3 (06:04→17:11)
--- NOTE | 2021-02-22 06:11 | P.CONS ---
History of Present Illness - Reason for Consult Consult date: 02/21/21 Anemia Requesting physician: Luc Corona - Chief Complaint Weakness - History of Present Illness 52-year-old female with multiple medical comorbidities including diabetes mellitus, peripheral arterial disease, hyperlipidemia, hypertension and right below the knee amputation in 2019 for non-healing wound presented to the hospital for evaluation of weakness. The patient reports feeling extremely weak been unable to hold her head or neck. She denies any history of anemia however was recently seen at [facility] for weakness and dark stool at which time she was told to hold anticoagulation therapy but continue to take it in the outpatient setting. She reports no prior EGD or colonoscopy. She denies any black or bloody stool at this time, no nausea or vomiting, no hematemesis or abdominal pain. The patient is on both Plavix and Xarelto therapy. Patient was found to be severely anemic on presentation and currently with a hemoglobin of 7.7 after transfusion with total bilirubin 0.3, alkaline phosphatase 77, AST 17 ALT 19. Review of Systems REVIEW OF SYSTEMS: CONSTITUTIONAL: Denies any fevers, chills, weight change but does report feeling extremely weak and tired. CARDIOVASCULAR: Denies any chest pain, palpitations high or low blood pressures RESPIRATORY: Denies any shortness of breath, hemoptysis or cough. GENITOURINARY: No dysuria or hematuria. MUSCULOSKELETAL: No weakness reported, status post right BKA. SKIN: Denies any new rashes or lesions, jaundice or pallor. PSYCHIATRIC: Denies any depression or anxiety. NEUROLOGY: Denies headache, denies any new focal deficits. EARS/NOSE/THROAT: No recent hearing change, congestion, nasal discharge or sore throat. EYES: No pain in eyes, discharge or change in vision. GASTROINTESTINAL: As per HPI. Past Medical History Past Medical History: Diabetes Mellitus, Hyperlipidemia, Hypertension Additional Past Medical History / Comment(s): anemia History of Any Multi-Drug Resistant Organisms: None Reported Past Surgical History: Orthopedic Surgery Additional Past Surgical History / Comment(s): neck fusion. rt below knee amputaion Past Psychological History: No Psychological Hx Reported Smoking Status: Never smoker Past Alcohol Use History: None Reported Past Drug Use History: None Reported - Past Family History Mother History Unknown: Yes Medications and Allergies Home Medications Medication Instructions Recorded Confirmed Type Atorvastatin [Lipitor] 20 mg PO HS 02/12/21 02/20/21 History Chlorthalidone 25 mg PO DAILY 02/12/21 02/20/21 History Cilostazol [Pletal] 100 mg PO BID 02/12/21 02/20/21 History Clopidogrel [Plavix] 75 mg PO DAILY 02/12/21 02/20/21 History Docusate [Colace] 100 mg PO DAILY 02/12/21 02/20/21 History Ferrous Sulfate [Feosol] 325 mg PO BID 02/12/21 02/20/21 History INSULIN LISPRO (humaLOG) [humaLOG] 14 units SQ AC-TID 02/12/21 02/20/21 History Insulin Glargine,Hum.rec.anlog 20 unit SQ DAILY 02/12/21 02/20/21 History [Lantus Solostar] Insulin Glargine,Hum.rec.anlog 30 unit SQ HS 02/12/21 02/20/21 History [Lantus Solostar] Pantoprazole Sodium [Protonix] 40 mg PO DAILY 02/12/21 02/20/21 History Potassium Chloride [Klor-Con 20] 20 meq PO DAILY 02/12/21 02/20/21 History Pregabalin [Lyrica] 150 mg PO BID 02/12/21 02/20/21 History Rivaroxaban [Xarelto] 20 mg PO HS 02/12/21 02/20/21 History lisinopriL 40 mg PO DAILY 02/12/21 02/20/21 History metFORMIN HCL 1,000 mg PO BID 02/12/21 02/20/21 History oxyCODONE-APAP 10-325MG [Percocet 1 tab PO Q8HR PRN 02/12/21 02/20/21 History 10-325 mg] Allergies Allergy/AdvReac Type Severity Reaction Status Date / Time heparin Allergy Anaphylaxis Verified 02/20/21 15:54 morphine Allergy Anaphylaxis Verified 02/20/21 15:54 tree nut Allergy Nausea & Verified 02/20/21 15:54 Vomiting & Diarrhea Physical Exam Vitals: Vital Signs Temp Pulse Pulse Resp BP BP Pulse Ox 02/21/21 11:45 98.2 F 92 92 16 110/58 110/58 95 02/21/21 10:02 98.2 F 90 16 113/56 02/21/21 09:42 98.2 F 92 16 114/53 100 05/13/21 09:32 98.2 F 94 16 127/75 100 02/21/21 08:00 98.2 F 94 16 96/50 100 02/21/21 02:00 88 17 02/21/21 00:00 97.6 F 90 18 108/60 100 02/20/21 22:03 98.7 F 98 19 107/48 100 02/20/21 21:13 98.5 F 92 18 91/38 100 02/20/21 20:31 98.6 F 101 H 18 101/50 96 02/20/21 20:01 98.3 F 90 18 103/48 97 02/20/21 20:00 18 02/20/21 19:51 98.8 F 101 H 20 86/59 96 02/20/21 19:49 98.8 F 101 H 20 86/59 96 02/20/21 19:24 98 F 69 16 121/78 02/20/21 18:00 95 18 91/51 100 02/20/21 17:31 98 02/20/21 17:21 98.5 F 82 16 116/62 02/20/21 16:51 98 F 93 18 112/71 02/20/21 16:41 98.2 F 90 16 108/57 02/20/21 16:00 93 20 103/54 100 02/20/21 14:33 98 20 112/66 100 Intake and Output 02/20/21 02/21/21 02/21/21 22:59 06:59 14:59 Intake Total 620 573 Output Total 400 400 Balance 620 -400 173 Intake: IV 30 Invasive Line 2 30 Oral 260 Blood Product 620 283 Rc As-1 Unit 310 [id number] Rc As-1 Unit 310 [id number] Rc Pheresis As-3 Unit 283 [id number] Output: Urine 400 400 Other: Voiding Method Bedpan Bedpan Bedpan # Voids 1 1 Weight 99.79 kg 98 kg On physical examination, patient appears comfortable in no apparent distress. HEAD: Normocephalic, atraumatic. EYES: No scleral icterus. No conjunctival injection. MOUTH: No lesions, tongue midline. NECK: Trachea midline, no gross abnormalities. CHEST: Clear to auscultation with no wheezing or rhonchi appreciated. HEART: S1-S2 appreciated. ABDOMEN: Soft, nontender. Bowel sounds are positive. No organomegaly. No guarding or rigidity. EXTREMITIES: No pedal edema, right BKA. SKIN: No rashes, no jaundice. NEUROLOGIC: Alert and oriented x3. No focal deficits. Results CBC & Chem 7: 02/21/21 16:02 02/21/21 04:36 Labs: Abnormal Lab Results - Last 24 Hours (Table) 02/20/21 02/20/21 02/20/21 Range/Units 15:08 15:08 15:20 RBC 1.92 L (3.80-5.40) m/uL Hgb 5.6 L* D (11.4-16.0) gm/dL Hct 18.8 L* (34.0-46.0) % MCHC 30.3 L (31.0-37.0) g/dL RDW 16.6 H (11.5-15.5) % PT 12.4 H (9.0-12.0) sec INR 1.2 H (<1.2) APTT 20.1 L (22.0-30.0) sec Chloride (98-107) mmol/L BUN (7-17) mg/dL Glucose (74-99) mg/dL POC Glucose (mg/dL) (75-99) mg/dL Total Protein (6.3-8.2) g/dL Albumin (3.5-5.0) g/dL Crossmatch See Detail 02/20/21 02/20/21 02/21/21 Range/Units 15:20 21:48 04:36 RBC (3.80-5.40) m/uL Hgb (11.4-16.0) gm/dL Hct (34.0-46.0) % MCHC (31.0-37.0) g/dL RDW (11.5-15.5) % PT (9.0-12.0) sec INR (<1.2) APTT (22.0-30.0) sec Chloride 108 H 108 H (98-107) mmol/L BUN 24 H 23 H (7-17) mg/dL Glucose 217 H (74-99) mg/dL POC Glucose (mg/dL) 240 H (75-99) mg/dL Total Protein 5.9 L (6.3-8.2) g/dL Albumin 3.4 L (3.5-5.0) g/dL Crossmatch 02/21/21 02/21/21 02/21/21 Range/Units 04:36 04:36 06:13 RBC 2.64 L (3.80-5.40) m/uL Hgb 7.7 L D (11.4-16.0) gm/dL Hct 24.5 L (34.0-46.0) % MCHC (31.0-37.0) g/dL RDW 17.3 H (11.5-15.5) % PT (9.0-12.0) sec INR (<1.2) APTT 20.9 L (22.0-30.0) sec Chloride (98-107) mmol/L BUN (7-17) mg/dL Glucose (74-99) mg/dL POC Glucose (mg/dL) 229 H (75-99) mg/dL Total Protein (6.3-8.2) g/dL Albumin (3.5-5.0) g/dL Crossmatch 02/21/21 02/21/21 Range/Units 08:39 11:58 RBC 2.63 L (3.80-5.40) m/uL Hgb 7.1 L (11.4-16.0) gm/dL Hct 24.5 L (34.0-46.0) % MCHC 29.2 L (31.0-37.0) g/dL RDW 17.4 H (11.5-15.5) % PT (9.0-12.0) sec INR (<1.2) APTT (22.0-30.0) sec Chloride (98-107) mmol/L BUN (7-17) mg/dL Glucose (74-99) mg/dL POC Glucose (mg/dL) 191 H (75-99) mg/dL Total Protein (6.3-8.2) g/dL Albumin (3.5-5.0) g/dL Crossmatch CT scan - abdomen: report reviewed (Computed tomography scan of the abdomen with findings of nonobstructing left renal calculi.) Assessment and Plan (1) Normocytic anemia Narrative/Plan: 60-year-old female with multiple medical comorbidities on anticoagulation and antiplatelet therapy who presented for extreme weakness. Found to have a normocytic normochromic anemia of unknown etiology. Previously she had reported melena but left AGAINST MEDICAL ADVICE at [facility]. Currently she is denying any signs or symptoms of GI bleeding. Unknown etiology, with patient likely having a component of anemia of chronic disease given multiple medical comorbidities, plan is for endoscopic evaluation to rule out GI bleed as the patient has not had EGD or colonoscopy in the past. Current Visit: Yes Status: Acute Code(s): D64.9 - ANEMIA, UNSPECIFIED SNOMED Code(s): 320414753 (2) Melena Current Visit: Yes Status: Acute Code(s): K92.1 - MELENA SNOMED Code(s): 1516719 Plan: Supportive care Clear liquid diet Nothing by mouth after midnight Bowel prep ordered Continue to monitor hemoglobin and hematocrit and transfuse as needed Continue to hold antiplatelet and anticoagulation therapy Avoid NSAID use Plan is for EGD and colonoscopy tomorrow with all of the risks, complications and benefits of the procedures discussed with the patient and her caregiver at length with all of her questions answered to her satisfaction Thank you for allowing us to participate in the care of the patient we will continue to follow
[2021-02-22 08:51] LABS: Glucose,Whole Blood 187 mg/dL (75-99)
[2021-02-22 09:02] LABS: Anisocytosis Slight; Basophils % (A) 0 %; Eosinophils # (A) 0.1 k/uL (0-0.7); Eosinophils % (A) 2 %; HCT 28.4 % (34.0-46.0); HGB 8.7 gm/dL (11.4-16.0); Hypochromasia Marked; Lymphocytes # (A) 1.2 k/uL (1.0-4.8); Lymphocytes % (A) 17 %; MCH 27.5 pg (25.0-35.0); MCHC 30.7 g/dL (31.0-37.0); MCV 89.6 fL (80.0-100.0); Monocytes # (A) 0.2 k/uL (0-1.0); Monocytes % (A) 3 %; Neutrophils # (A) 5.5 k/uL (1.3-7.7); Neutrophils % (A) 78 %; Platelet Count 248 k/uL (150-450); Poikilocytosis Marked; RBC 3.17 m/uL (3.80-5.40); RDW 17.1 % (11.5-15.5); WBC 7.1 k/uL (3.8-10.6)
[2021-02-22] MEDS ORDERED: ONDANSETRON 4 MG/2 ML VIAL IVP PRN (09:02)
[2021-02-22] MEDS: PANTOPRAZOLE 40 MG/10 ML VIAL IVP SCH (09:03)
[2021-02-22 09:09] LABS: ALT 11 U/L (4-34); AST 22 U/L (14-36); African American GFR (CKD) >90 (>60 ml/min/1.73 sqM); Albumin 3.6 g/dL (3.5-5.0); Alkaline Phosphatase 82 U/L (38-126); Anion Gap 5 mmol/L; Blood Urea Nitrogen 9 mg/dL (7-17); Calcium 9.3 mg/dL (8.4-10.2); Carbon Dioxide 29 mmol/L (22-30); Chloride 105 mmol/L (98-107); Glucose 157 mg/dL (74-99); Magnesium 1.5 mg/dL (1.6-2.3); Non-African American GFR(CKD) >90 (>60 ml/min/1.73 sqM); Potassium 3.5 mmol/L (3.5-5.1); Sodium 139 mmol/L (137-145); Total Bilirubin 0.4 mg/dL (0.2-1.3); Total Protein 6.4 g/dL (6.3-8.2)
--- NOTE | 2021-02-22 11:26 | P.CNPUL ---
History of Present Illness Consult date: 02/22/21 Reason for consult: dyspnea, cough, COPD Chief complaint: Generalized weakness, severe anemia, History of present illness: this is a 60-year-old female came into the hospital with progressive generalized weakness intermittent shortness of breath along with fatigue tiredness has been going on for a while, patient does have a history of GI bleed, she was hospitalized at [facility] however she left AGAINST MEDICAL ADVICE came into the [facility] or on to have a hemoglobin of 5.6, patient has advanced vascular disease has been on Dir. oral anticoagulant, which have been stopped due to severe anemia, she is a status post right BKA in 2020 for nonhealing wound in the right lower extremity, has been transfused with 2 units of packed RBC today hemoglobin came up to 8.7, patient has been scheduled for EGD and colonoscopy later on today Review of Systems All systems: negative Past Medical History Past Medical History: Diabetes Mellitus, Hyperlipidemia, Hypertension Additional Past Medical History / Comment(s): anemia History of Any Multi-Drug Resistant Organisms: None Reported Past Surgical History: Orthopedic Surgery Additional Past Surgical History / Comment(s): neck fusion. rt below knee amputaion Past Psychological History: No Psychological Hx Reported Smoking Status: Never smoker Past Alcohol Use History: None Reported Past Drug Use History: None Reported - Past Family History Mother History Unknown: Yes Medications and Allergies Home Medications Medication Instructions Recorded Confirmed Type Atorvastatin [Lipitor] 20 mg PO HS 02/12/21 02/20/21 History Chlorthalidone 25 mg PO DAILY 02/12/21 02/20/21 History Cilostazol [Pletal] 100 mg PO BID 02/12/21 02/20/21 History Clopidogrel [Plavix] 75 mg PO DAILY 02/12/21 02/20/21 History Docusate [Colace] 100 mg PO DAILY 02/12/21 02/20/21 History Ferrous Sulfate [Feosol] 325 mg PO BID 02/12/21 02/20/21 History INSULIN LISPRO (humaLOG) [humaLOG] 14 units SQ AC-TID 02/12/21 02/20/21 History Insulin Glargine,Hum.rec.anlog 20 unit SQ DAILY 02/12/21 02/20/21 History [Lantus Solostar] Insulin Glargine,Hum.rec.anlog 30 unit SQ HS 02/12/21 02/20/21 History [Lantus Solostar] Pantoprazole Sodium [Protonix] 40 mg PO DAILY 02/12/21 02/20/21 History Potassium Chloride [Klor-Con 20] 20 meq PO DAILY 02/12/21 02/20/21 History Pregabalin [Lyrica] 150 mg PO BID 02/12/21 02/20/21 History Rivaroxaban [Xarelto] 20 mg PO HS 02/12/21 02/20/21 History lisinopriL 40 mg PO DAILY 02/12/21 02/20/21 History metFORMIN HCL 1,000 mg PO BID 02/12/21 02/20/21 History oxyCODONE-APAP 10-325MG [Percocet 1 tab PO Q8HR PRN 02/12/21 02/20/21 History 10-325 mg] Allergies Allergy/AdvReac Type Severity Reaction Status Date / Time heparin Allergy Anaphylaxis Verified 02/20/21 15:54 morphine Allergy Anaphylaxis Verified 02/20/21 15:54 tree nut Allergy Nausea & Verified 02/20/21 15:54 Vomiting & Diarrhea Physical Exam Vitals: Vital Signs Temp Pulse Pulse Resp BP BP Pulse Ox 02/22/21 03:02 97.9 F 82 16 134/70 97 02/21/21 23:14 86 16 123/69 98 02/21/21 20:43 98.0 F 93 18 126/70 100 02/21/21 16:00 98.3 F 98 18 116/64 92 L 02/21/21 11:45 98.2 F 92 92 16 110/58 110/58 95 Intake and Output 02/21/21 02/22/21 02/22/21 22:59 06:59 14:59 Output Total 1560 Balance -1560 Output: Stool 1560 Other: Voiding Method Bedside Commode # Bowel Movements 1 - Constitutional General appearance: average body habitus, cooperative, disheveled - EENT Eyes: EOMI, PERRLA Ears: bilateral: normal - Neck Neck: normal ROM Carotids: bilateral: upstroke normal - Respiratory Respiratory: bilateral: diminished, prolonged expiration - Cardiovascular Heart sounds: normal: S1, S2 - Gastrointestinal General gastrointestinal: decreased bowel sounds - Neurologic Neurologic: CNII-XII intact - Musculoskeletal Musculoskeletal: gait normal, generalized weakness, strength equal bilaterally - Psychiatric Psychiatric: A&O x's 3, appropriate affect, intact judgment & insight Results - Laboratory Findings CBC and BMP: 02/22/21 08:13 02/22/21 08:13 PT/INR, D-dimer PT 10.0 sec (9.0-12.0) 02/21/21 04:36 INR 0.9 (<1.2) 02/21/21 04:36 Abnormal lab findings: Abnormal Labs 02/20/21 02/20/21 02/20/21 15:08 15:08 15:20 RBC 1.92 L Hgb 5.6 L* D Hct 18.8 L* MCHC 30.3 L RDW 16.6 H PT 12.4 H INR 1.2 H APTT 20.1 L Chloride BUN Creatinine Glucose POC Glucose (mg/dL) Magnesium Total Protein Albumin Crossmatch See Detail 02/20/21 02/20/21 02/21/21 15:20 21:48 04:36 RBC Hgb Hct MCHC RDW PT INR APTT Chloride 108 H 108 H BUN 24 H 23 H Creatinine Glucose 217 H POC Glucose (mg/dL) 240 H Magnesium Total Protein 5.9 L Albumin 3.4 L Crossmatch 02/21/21 02/21/21 02/21/21 04:36 04:36 06:13 RBC 2.64 L Hgb 7.7 L D Hct 24.5 L MCHC RDW 17.3 H PT INR APTT 20.9 L Chloride BUN Creatinine Glucose POC Glucose (mg/dL) 229 H Magnesium Total Protein Albumin Crossmatch 02/21/21 02/21/21 02/21/21 08:39 11:58 16:02 RBC 2.63 L 3.15 L Hgb 7.1 L 9.3 L D Hct 24.5 L 28.5 L MCHC 29.2 L RDW 17.4 H 17.2 H PT INR APTT Chloride BUN Creatinine Glucose POC Glucose (mg/dL) 191 H Magnesium Total Protein Albumin Crossmatch 02/21/21 02/21/21 02/22/21 17:11 19:57 00:31 RBC Hgb Hct MCHC RDW PT INR APTT Chloride BUN Creatinine Glucose POC Glucose (mg/dL) 153 H 143 H 100 H Magnesium Total Protein Albumin Crossmatch 05/02/22/21 02/22/21 00:58 05:53 08:13 RBC 3.17 L Hgb 8.7 L Hct 28.4 L MCHC 30.7 L RDW 17.1 H PT INR APTT Chloride BUN Creatinine Glucose POC Glucose (mg/dL) 138 H 144 H Magnesium Total Protein Albumin Crossmatch 02/22/21 02/22/21 08:13 08:50 RBC Hgb Hct MCHC RDW PT INR APTT Chloride BUN Creatinine 0.50 L Glucose 157 H POC Glucose (mg/dL) 187 H Magnesium 1.5 L Total Protein Albumin Crossmatch - Diagnostic Findings Chest x-ray: report reviewed, image reviewed (no acute process) Additional studies: computed tomography scan of the abdominal and pelvis negative for bases of the lung in terms of infiltrate or atelectasis, no significant pathology noted, liver or gallbladder pancreas spleen and adrenals within normal limit, 3 mm calculus in the left upper pole of kidney has been noted, Assessment and Plan Assessment: generalized weakness tiredness and shortness of breath likely related to severe symptomatic anemia GI bleed upper versus lower Severe by Peripheral arterial disease status post right BKA for nonhealing wound of the right leg and foot COPD not in exacerbationto be further evaluated in outpatient setting Obstructive sleep apnea to be evaluated further outpatient setting Plan: blood transfusion as needed keep hemoglobin over 7-8 Seen with endoscopy involving EGD and colonoscopy Patient has been consult about smoking cessation Patient to be evaluated further outpatient setting for sleep disorder breathing and sleep apnea Observe and follow hemodynamics closely continue proton pump inhibitor further plan of care as per clinical response of patient Time with Patient: Greater than 30
[2021-02-22] MEDS ORDERED: Magnesium Replacement Protocol 1 EACH MISC MISCELLANE PRN (11:37)
[2021-02-22] MEDS ORDERED: Potassium Replacement Protocol 1 EACH MISC MISCELLANE PRN (11:37)
[2021-02-22 12:13] LABS: Glucose,Whole Blood 212 mg/dL (75-99)
[2021-02-22] MEDS ORDERED: GLYCOPYRROLATE 0.2 MG/ML 2 ML VIAL ONE (13:14)
[2021-02-22] MEDS ORDERED: LIDOCAINE 1% INJ 10MG/ML (20 ML MDV) ONE (13:14)
[2021-02-22] MEDS ORDERED: PROPOFOL 10 MG/ML 20 ML VIAL IV ONE (13:14)
[2021-02-22] MEDS ORDERED: IV FLUID CONTINUATION 100 ML IV ONE (13:16)
--- NOTE | 2021-02-22 13:25 | P.PN ---
<Grecia Oseguera - Last Filed: 02/22/21 13:20> Subjective Progress Note Date: 02/22/21 CHIEF COMPLAINT: Generalized weakness HISTORY OF PRESENT ILLNESS: Surgery is following in regards to patient's anemia. She had a hemoglobin of 5.6 on admission. She presented with generalized weakness and shortness of breath. Patient is scheduled for EGD and colonoscopy today with GI service. She tolerated the GoLYTELY prep. No blood reported in the stools. Denies any abdominal pain. Her hemoglobin did get up to 9.3 after 3 units of blood. Her hemoglobin this morning is 8.7. She is afebrile WBC 7.1 platelets 258 magnesium 1.5 and is being replaced. PHYSICAL EXAM: VITAL SIGNS: Reviewed GENERAL: Well-developed in no acute distress. HEENT: No sclera icterus. Extraocular movements grossly intact. Moist buccal mucosa. Head is atraumatic, normocephalic. Hears conversational speech. No nasal drainage. NECK: Supple without lymphadenopathy. CHEST: Non-labored respirations and equal bilateral excursions. CARDIOVASCULAR: Palpable 2+ radial pulses. ABDOMEN: Soft. Nondistended. Nontender. MUSCULOSKELETAL: No clubbing or cyanosis. NEUROLOGIC: No focal or lateralizing signs. Cranial nerves II through XII dangelo ssly intact. PSYCH: Appropriate affect. Alert and oriented to person, place and time. SKIN: Well perfused. Good skin turgor. ASSESSMENT: 1. Symptomatic anemia status post 3 units of blood. Concerns for GI blood loss 2. Generalized weakness 3. Diabetes mellitus type 2 4. Peripheral vascular disease disease and peripheral arterial disease. Prior history of femoral bypasses. 5. Hypertension 6. Hyperlipidemia PLAN: -Patient is scheduled for EGD and colonoscopy today with GI service -We will review EGD and colonoscopy results when available -Continue to monitor hemoglobin -Continue to hold Xarelto on Plavix -Continue to observe and monitor patient -Further recommendations forthcoming per surgeon Physician Graphic Arts Technician note has been reviewed by physician. Signing provider agrees with the documented findings, assessment, and plan of care. Objective - Vital Signs Vital signs: Vital Signs Temp 98.6 F 02/22/21 08:55 Pulse 98 02/22/21 08:55 Resp 16 02/22/21 08:55 BP 140/83 02/22/21 08:55 Pulse Ox 98 05/14/21 08:55 Intake & Output 02/21/21 02/22/21 02/22/21 18:59 06:59 18:59 Intake Total 573 Output Total 900 1060 300 Balance -327 -1060 -300 Intake: IV 30 Invasive Line 2 30 Oral 260 Blood Product 283 Rc Pheresis As-3 Unit 283 [id number] Output: Urine 400 300 Stool 500 1060 Other: Voiding Method Bedpan Bedside Commode # Bowel Movements 1 - Labs CBC & Chem 7: 02/22/21 08:13 02/22/21 08:13 Labs: Abnormal Lab Results - Last 24 Hours (Table) 02/21/21 02/21/21 02/21/21 Range/Units 16:02 17:11 19:57 RBC 3.15 L (3.80-5.40) m/uL Hgb 9.3 L D (11.4-16.0) gm/dL Hct 28.5 L (34.0-46.0) % MCHC (31.0-37.0) g/dL RDW 17.2 H (11.5-15.5) % Creatinine (0.52-1.04) mg/dL Glucose (74-99) mg/dL POC Glucose (mg/dL) 153 H 143 H (75-99) mg/dL Magnesium (1.6-2.3) mg/dL 02/22/21 02/22/21 02/22/21 Range/Units 00:31 00:58 05:53 RBC (3.80-5.40) m/uL Hgb (11.4-16.0) gm/dL Hct (34.0-46.0) % MCHC (31.0-37.0) g/dL RDW (11.5-15.5) % Creatinine (0.52-1.04) mg/dL Glucose (74-99) mg/dL POC Glucose (mg/dL) 100 H 138 H 144 H (75-99) mg/dL Magnesium (1.6-2.3) mg/dL 02/22/21 02/22/21 02/22/21 Range/Units 08:13 08:13 08:50 RBC 3.17 L (3.80-5.40) m/uL Hgb 8.7 L (11.4-16.0) gm/dL Hct 28.4 L (34.0-46.0) % MCHC 30.7 L (31.0-37.0) g/dL RDW 17.1 H (11.5-15.5) % Creatinine 0.50 L (0.52-1.04) mg/dL Glucose 157 H (74-99) mg/dL POC Glucose (mg/dL) 187 H (75-99) mg/dL Magnesium 1.5 L (1.6-2.3) mg/dL 02/22/21 Range/Units 12:08 RBC (3.80-5.40) m/uL Hgb (11.4-16.0) gm/dL Hct (34.0-46.0) % MCHC (31.0-37.0) g/dL RDW (11.5-15.5) % Creatinine (0.52-1.04) mg/dL Glucose (74-99) mg/dL POC Glucose (mg/dL) 212 H (75-99) mg/dL Magnesium (1.6-2.3) mg/dL <Barbara Christie N - Last Filed: 04/28/21 22:24> Subjective Patient seen and evaluated. No active bleed. Stable from a surgical standpoint for discharge. CHIEF COMPLAINT: Acute anemia HISTORY OF PRESENT ILLNESS: The patient is a 60 year old female who presents with acute anemia hemoglobin less than 6.0 with pre-existing history of peripheral vascular occlusive disease including right tphbd-xta-ssfw amputation. Hemoglobin has improved from 5.7-9.3. No reports of gastrointestinal bleeding. No reports of abdominal pain. REVIEW OF ORGAN SYSTEMS: No nausea or vomiting. No fevers or chills. No shortness of breath. PHYSICAL EXAM: VITALS: Reviewed CONSTITUTIONAL: Well developed and in no acute distress. EYES: Conjuctivae without sclera icterus. Extraocular movements grossly intact. HEAD, EARS, NOSE, THROAT: Moist buccal mucosa. Head is atraumatic, normocephalic. Hears conversational speech. No nasal drainage. NECK: Supple. No JV distention. RESPIRATORY: Non-labored respirations and equal bilateral excursions. No gross wheezes. CARDIOVASCULAR: Regular rate and rhythm. Extremities without moderate edema. Palpable 2+ radial pulses. ABDOMEN: No peritonitis. Nontender. MUSCULOSKELETAL: Nail and fingers with good capillary refill. Has right sozak-opf-pjrm amputation SKIN: Warm and well perfused with good skin turgor. NEUROLOGIC: Cranial nerves II through XII grossly intact. No focal or lateralizing signs. PSYCH: Appropriate affect. Alert and oriented to person, place and time. Displays appropriate insight. CLINCAL LABS: Reviewed. Initial hemoglobin 5.6 up to 9.3. ASSESSMENT: 1. Acute anemia 2. Peripheral vascular occlusive disease 3. Chronic anticoagulation 4. History of right ygnoa-mfr-ikzs amputation 5. Diabetes type 2, insulin-dependent 6. Chronic antiplatelet therapy 7. Status post blood transfusion PLAN: 1. Overall, she is pending upper lower endoscopy. 2. No acute surgical intervention. Objective - Vital Signs Vital signs: Vital Signs Temp 98 F 02/22/21 13:57 Pulse 77 02/22/21 14:27 Resp 16 02/22/21 14:27 BP 171/83 02/22/21 14:27 Pulse Ox 97 02/22/21 14:27 Intake & Output 02/21/21 02/22/21 02/22/21 18:59 06:59 18:59 Intake Total 573 420 Output Total 900 1060 300 Balance -327 -1060 120 Intake: IV 30 420 Invasive Line 2 30 Invasive Line 4 20 Oral 260 Blood Product 283 Rc Pheresis As-3 Unit 283 [id number] Output: Urine 400 300 Stool 500 1060 Other: Voiding Method Bedpan Bedside Commode # Bowel Movements 1 - Labs CBC & Chem 7: 02/22/21 08:13 02/22/21 08:13 Labs: Abnormal Lab Results - Last 24 Hours (Table) 02/21/21 02/21/21 02/21/21 Range/Units 16:02 17:11 19:57 RBC 3.15 L (3.80-5.40) m/uL Hgb 9.3 L D (11.4-16.0) gm/dL Hct 28.5 L (34.0-46.0) % MCHC (31.0-37.0) g/dL RDW 17.2 H (11.5-15.5) % Creatinine (0.52-1.04) mg/dL Glucose (74-99) mg/dL POC Glucose (mg/dL) 153 H 143 H (75-99) mg/dL Magnesium (1.6-2.3) mg/dL 02/22/21 02/22/21 02/22/21 Range/Units 00:31 00:58 05:53 RBC (3.80-5.40) m/uL Hgb (11.4-16.0) gm/dL Hct (34.0-46.0) % MCHC (31.0-37.0) g/dL RDW (11.5-15.5) % Creatinine (0.52-1.04) mg/dL Glucose (74-99) mg/dL POC Glucose (mg/dL) 100 H 138 H 144 H (75-99) mg/dL Magnesium (1.6-2.3) mg/dL 02/22/21 02/22/21 02/22/21 Range/Units 08:13 08:13 08:50 RBC 3.17 L (3.80-5.40) m/uL Hgb 8.7 L (11.4-16.0) gm/dL Hct 28.4 L (34.0-46.0) % MCHC 30.7 L (31.0-37.0) g/dL RDW 17.1 H (11.5-15.5) % Creatinine 0.50 L (0.52-1.04) mg/dL Glucose 157 H (74-99) mg/dL POC Glucose (mg/dL) 187 H (75-99) mg/dL Magnesium 1.5 L (1.6-2.3) mg/dL 02/22/21 Range/Units 12:08 RBC (3.80-5.40) m/uL Hgb (11.4-16.0) gm/dL Hct (34.0-46.0) % MCHC (31.0-37.0) g/dL RDW (11.5-15.5) % Creatinine (0.52-1.04) mg/dL Glucose (74-99) mg/dL POC Glucose (mg/dL) 212 H (75-99) mg/dL Magnesium (1.6-2.3) mg/dL Assessment and Plan (1) Anemia Status: Acute Code(s): D64.9 - ANEMIA, UNSPECIFIED SNOMED Code(s): 338940272 (2) Anticoagulant long-term use Status: Acute Code(s): Z79.01 - NATURAL GAS PLANT TECHNICIAN (CURRENT) USE OF ANTICOAGULANTS SNOMED Code(s): 840531783 (3) Antiplatelet or antithrombotic long-term use Status: Acute Code(s): Z79.02 - NATURAL GAS PLANT TECHNICIAN (CURRENT) USE OF ANTITHROMBOTICS/ANTIPLATELETS SNOMED Code(s): 820174868 (4) Diabetes mellitus type 2, insulin dependent Status: Acute Code(s): E11.9 - TYPE 2 DIABETES MELLITUS WITHOUT COMPLICATIONS; Z79.4 - NATURAL GAS PLANT TECHNICIAN (CURRENT) USE OF INSULIN SNOMED Code(s): 176602721 (5) GI bleed Status: Acute Code(s): K92.2 - GASTROINTESTINAL HEMORRHAGE, UNSPECIFIED SNOMED Code(s): 85465660 (6) Hx of BKA Status: Acute Code(s): Z89.519 - ACQUIRED ABSENCE OF UNSPECIFIED LEG BELOW KNEE SNOMED Code(s): 413411296
[2021-02-22] MEDS ORDERED: SODIUM CHLORIDE 0.9% 500 ML 500 ML IV ONE (13:33)
--- NOTE | 2021-02-22 14:08 | P.PCN ---
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 The patient reports feeling extremely weak been unable to hold her head or neck. She denies any history of anemia however was recently seen at [facility] for weakness and dark stool at which time she was told to hold anticoagulation therapy but continue to take it in the outpatient setting. She reports no prior EGD or colonoscopy. She denies any black or bloody stool at this time, no nausea or vomiting, no hematemesis or abdominal pain. The patient is on both Plavix and Xarelto therapy. Patient was found to be severely anemic on presentation and currently with a hemoglobin of 7.7 after transfusion. Procedure performed: Esophagogastroduodenoscopy Colonoscopy Estimated blood loss: Minimal. Preoperative diagnosis: Severe symptomatic anemia, no prior colonoscopy Anesthesia: MAC Procedure: After informed consent was obtained from the patient was brought into the endoscopy unit and IV sedation was administered by anesthesia under continuous monitoring. Initially upper endoscopy was done. The Olympus GF 190 video endoscope was inserted into the mouth and esophagus intubated without any difficulty and was gradually advanced into the stomach and duodenum and carefully examined. The bulb and second part of the duodenum appeared normal. The scope was then withdrawn into the stomach adequately insufflated with air and upon careful examination the antrum and body, cardia and fundus appeared normal, except for some mild punctate erythema in the antrum and body suggestive of mild gastritis. The scope was then withdrawn into the esophagus. The GE junction was located at 40 cm to the incisors. It appeared regular with no erythema erosions or ulcerations. Rest of the esophagus appeared normal. Patient tolerated the procedure well. At this time the patient continued to remain sedation. Initial digital rectal examination was normal. Olympus CF 190 video colonoscope was then inserted into the rectum and gradually advanced to the cecum without any difficulty. Careful examination was performed as the scope was gradually being withdrawn. The prep was excellent. The cecum, ascending colon, transverse colon, descending colon, sigmoid colon and rectum appeared normal. A few diminutive subcentimeter polyps noted in the rectum and cecum not removed due to anticoagulation and antiplatelet use. Retroflexion was performed in the rectum and no lesions were noted, low-grade internal hemorrhoids seen. Patient tolerated the procedure well. Impression: 1. No active bleeding, old blood or pathology to explain anemia. No biopsies or polypectomies performed in the setting of recent anticoagulation and antiplatelet therapy with the patient having recently taken Plavix and Xarelto. 2. Mild gastritis on EGD. 3. Internal hemorrhoids and a few diminutive subcentimeter polyps in the rectum and sigmoid not removed due to anticoagulation antiplatelet therapy. Recommendations: Findings of this examination were discussed with the patient as well as Her caregiver. Okay to resume diet. Okay to resume medications. If patient remains anemic consider video capsule endoscopy in the outpatient setting. If any further signs or symptoms of GI bleeding develops recommend second look endoscopy. Otherwise, patient would benefit from hematologic evaluation and close follow-up with primary care physician for monitoring of hemoglobin.
--- NOTE | 2021-02-22 14:41 | P.PN ---
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 She follows in the office with Dr. Pizarro. We have been asked to see in consultation for possible cardiac component to patient's symptoms. Patient presents to the emergency department with complaints of generalized weakness, She states that she was very weak at home to the point that she could not lift her head. Patient is on Xarelto 20mg nightly anticoagulation therapy per vascular surgeon due to severe peripheral artery disease. On admission hemoglobin 5.6. Patient recieved 2 units of PRBCs. Hemoglobin 7.1 this morning. Patient states she continues to feel weak but it has improved. She states she has had stents placed in her legs before. She denies history of heart failure, coronary artery disease, [place], stroke. She denies having a cardiac catheterization or a cardiac workup previously. She denies alcohol use. Denies family of cardiac disease. She denies chest pain, palpitations, shortness of breath, lightheadedness or dizziness. Former nicotine dependence smoking 1/2 PPD x 30 years. Current home daily medications include lisinopril 40mg daily, Xarelto 20mg nightly, potassium chloride 20meq daily, plavix 75mg daily, atorvastaatin 20mg nightly, chlorthalidone 25mg daily, cilostazol 100mg BID, ferrous sulfate 325mg BID, Lyrica, metformin and insulin DIAGNOSTICS Echocardiogram revealed left ventricular systolic function normal with EF between 50-55%, mild mitral regurgitation, mild tricuspid regurgitation Records obtained from outpatient [facility] Dr. Pizarro Patient underwent peripheral angiography which revealed: Severe 80% mid to distal left SFA stenosis status post laser atherectomy and percutaneous transluminal angioplasty Severe proximal amfje-egp-lcqt left popliteal artery 80% stenosis status post successful percutaneous transluminal angioplasty Right vas FA proximal vessel lesion 100% stenosis Left common iliac is patent with mild diffuse disease Left posterior tibial that vessel lesion 100% stenosis, left peroneal ostial lesion 100% stenosis 02/22/2021: Patient seen and examined at bedside, sitting at the edge of the bed, no acute distress. No complaints. Plan for EGD and colonoscopy today with GI. Laboratory reviewed, hemoglobin 8.7, platelets 248, WBC 7.1, sodium 139, potassium 3.5, serum creatinine 0.50, BUN 9. Plavix and Xarelto on hold. Telemetry tracings indicate sinus mechanism HR 70s to 80s. PHYSICAL EXAMINATION Blood pressure 140/83 heart rate 90 afebrile and maintaining oxygen saturation 90% on room air CONSTITUTIONAL: No apparent distress. HEENT: No JVD. No carotid bruit. CHEST EXAMINATION: Lungs are clear to auscultation. HEART EXAMINATION: Regular rate and rhythm. S1, S2 heard. No murmurs, gallops or rub. ABDOMEN: Soft, nontender. Positive bowel sounds. EXTREMITIES: Right lower extremity BKA 2+ peripheral pulses, no lower extremity edema and no calf tenderness. NEUROLOGIC EXAMINATION: Patient is awake, alert and oriented x3. 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 Unsure why patient is on such a high dose for peripheral artery disease. Usual dosage is 2.5mg BID for chronic PAD. Recommend stopping Xarelto 20mg and transitioning to other recommended therapy for peripheral artery disease. -Plan for EGD and colonoscopy with GI, Plavix and Xarelto on hold. -No further workup at this time. We will follow the patient as needed. -Patient can follow up with Dr. De La Torre in the office for further follow up in 4 weeks. Nurse Practitioner note has been reviewed, I agree with a documented findings and plan of care. Patient was seen and examined. Objective - Vital Signs Vital signs: Vital Signs Temp 97.9 F 02/22/21 03:02 Pulse 82 02/22/21 03:02 Resp 16 02/22/21 03:02 BP 134/70 02/22/21 03:02 Pulse Ox 97 02/22/21 03:02 Intake & Output 02/21/21 02/22/21 02/22/21 18:59 06:59 18:59 Intake Total 573 Output Total 900 1060 Balance -327 -1060 Intake: IV 30 Invasive Line 2 30 Oral 260 Blood Product 283 Rc Pheresis As-3 Unit 283 [id number] Output: Urine 400 Stool 500 1060 Other: Voiding Method Bedpan Bedside Commode # Bowel Movements 1 - Labs CBC & Chem 7: 02/22/21 08:13 02/22/21 08:13 Labs: Abnormal Lab Results - Last 24 Hours (Table) 02/20/21 02/21/21 02/21/21 Range/Units 15:08 08:39 11:58 RBC 2.63 L (3.80-5.40) m/uL Hgb 7.1 L (11.4-16.0) gm/dL Hct 24.5 L (34.0-46.0) % MCHC 29.2 L (31.0-37.0) g/dL RDW 17.4 H (11.5-15.5) % POC Glucose (mg/dL) 191 H (75-99) mg/dL Crossmatch See Detail 02/21/21 02/21/21 02/21/21 Range/Units 16:02 17:11 19:57 RBC 3.15 L (3.80-5.40) m/uL Hgb 9.3 L D (11.4-16.0) gm/dL Hct 28.5 L (34.0-46.0) % MCHC (31.0-37.0) g/dL RDW 17.2 H (11.5-15.5) % POC Glucose (mg/dL) 153 H 143 H (75-99) mg/dL Crossmatch 02/22/21 02/22/21 02/22/21 Range/Units 00:31 00:58 05:53 RBC (3.80-5.40) m/uL Hgb (11.4-16.0) gm/dL Hct (34.0-46.0) % MCHC (31.0-37.0) g/dL RDW (11.5-15.5) % POC Glucose (mg/dL) 100 H 138 H 144 H (75-99) mg/dL Crossmatch
--- NOTE | 2021-02-22 15:39 | P.PN ---
Subjective Progress Note Date: 02/22/21 CHIEF COMPLAINT: Acute anemia HISTORY OF PRESENT ILLNESS: The patient is a 60 year old female who presents with acute anemia hemoglobin less than 6.0 with pre-existing history of peripheral vascular occlusive disease including right iikgt-sxj-qbbk amputation. Hemoglobin has improved after 3 units packed red blood cells. Upper and lower endoscopy are completed. At this time, she is tolerating diet. She is on anticoagulation. REVIEW OF ORGAN SYSTEMS: No nausea or vomiting. No fevers or chills. No shortness of breath. PHYSICAL EXAM: VITALS: Reviewed CONSTITUTIONAL: Well developed and in no acute distress. EYES: Conjuctivae without sclera icterus. Extraocular movements grossly intact. HEAD, EARS, NOSE, THROAT: Moist buccal mucosa. Head is atraumatic, normocephalic. Hears conversational speech. No nasal drainage. NECK: Supple. No JV distention. RESPIRATORY: Non-labored respirations and equal bilateral excursions. No gross wheezes. CARDIOVASCULAR: Regular rate and rhythm. Extremities without moderate edema. Palpable 2+ radial pulses. ABDOMEN: No peritonitis. Nontender. MUSCULOSKELETAL: Has right bgsql-mum-odea amputation SKIN: Warm and well perfused with good skin turgor. NEUROLOGIC: Cranial nerves II through XII grossly intact. No focal or lateralizing signs. PSYCH: Appropriate affect. Alert and oriented to person, place and time. Displays appropriate insight. CLINCAL LABS: Reviewed. Initial hemoglobin 5.6 up to 9.3, now 8.7 REPORTS: Upper endoscopy report demonstrates mild gastritis without active bleeding. Colonoscopy report reviewed without angiodysplasia. No active bleeding. ASSESSMENT: 1. Acute anemia 2. Peripheral vascular occlusive disease 3. Chronic anticoagulation 4. History of right knkdj-zdu-gxof amputation 5. Diabetes type 2, insulin-dependent 6. Chronic antiplatelet therapy 7. Status post blood transfusion PLAN: 1. Patient seen and evaluated. Results of upper and lower endoscopy demonstrates no active bleeding. 2. Patient comes her pre-existing anemia. 3. Patient stable from a surgical standpoint for discharge. 4. Follow-up as outpatient. 5. Additionally may benefit from hematology assessment. Objective - Vital Signs Vital signs: Vital Signs Temp 98 F 02/22/21 13:57 Pulse 77 02/22/21 14:27 Resp 16 02/22/21 14:27 BP 171/83 02/22/21 14:27 Pulse Ox 97 05/14/21 14:27 Intake & Output 02/21/21 02/22/21 02/22/21 18:59 06:59 18:59 Intake Total 573 420 Output Total 900 1060 300 Balance -327 -1060 120 Intake: IV 30 420 Invasive Line 2 30 Invasive Line 4 20 Oral 260 Blood Product 283 Rc Pheresis As-3 Unit 283 [id number] Output: Urine 400 300 Stool 500 1060 Other: Voiding Method Bedpan Bedside Commode # Bowel Movements 1 - Labs CBC & Chem 7: 02/22/21 08:13 02/22/21 08:13 Labs: Abnormal Lab Results - Last 24 Hours (Table) 02/21/21 02/21/21 02/21/21 Range/Units 16:02 17:11 19:57 RBC 3.15 L (3.80-5.40) m/uL Hgb 9.3 L D (11.4-16.0) gm/dL Hct 28.5 L (34.0-46.0) % MCHC (31.0-37.0) g/dL RDW 17.2 H (11.5-15.5) % Creatinine (0.52-1.04) mg/dL Glucose (74-99) mg/dL POC Glucose (mg/dL) 153 H 143 H (75-99) mg/dL Magnesium (1.6-2.3) mg/dL 02/22/21 02/22/21 02/22/21 Range/Units 00:31 00:58 05:53 RBC (3.80-5.40) m/uL Hgb (11.4-16.0) gm/dL Hct (34.0-46.0) % MCHC (31.0-37.0) g/dL RDW (11.5-15.5) % Creatinine (0.52-1.04) mg/dL Glucose (74-99) mg/dL POC Glucose (mg/dL) 100 H 138 H 144 H (75-99) mg/dL Magnesium (1.6-2.3) mg/dL 02/22/21 02/22/21 02/22/21 Range/Units 08:13 08:13 08:50 RBC 3.17 L (3.80-5.40) m/uL Hgb 8.7 L (11.4-16.0) gm/dL Hct 28.4 L (34.0-46.0) % MCHC 30.7 L (31.0-37.0) g/dL RDW 17.1 H (11.5-15.5) % Creatinine 0.50 L (0.52-1.04) mg/dL Glucose 157 H (74-99) mg/dL POC Glucose (mg/dL) 187 H (75-99) mg/dL Magnesium 1.5 L (1.6-2.3) mg/dL 02/22/21 Range/Units 12:08 RBC (3.80-5.40) m/uL Hgb (11.4-16.0) gm/dL Hct (34.0-46.0) % MCHC (31.0-37.0) g/dL RDW (11.5-15.5) % Creatinine (0.52-1.04) mg/dL Glucose (74-99) mg/dL POC Glucose (mg/dL) 212 H (75-99) mg/dL Magnesium (1.6-2.3) mg/dL Assessment and Plan (1) Anemia Status: Acute Code(s): D64.9 - ANEMIA, UNSPECIFIED SNOMED Code(s): 213829284 (2) Anticoagulant long-term use Status: Acute Code(s): Z79.01 - ORE FIELDER (CURRENT) USE OF ANTICOAGULANTS SNOMED Code(s): 631157362 (3) Antiplatelet or antithrombotic long-term use Status: Acute Code(s): Z79.02 - LONGTERM (CURRENT) USE OF ANTITHROMBOTICS/ANTIPLATELETS SNOMED Code(s): 280123077 (4) Diabetes mellitus type 2, insulin dependent Status: Acute Code(s): E11.9 - TYPE 2 DIABETES MELLITUS WITHOUT COMPLICATIONS; Z79.4 - LONGTERM (CURRENT) USE OF INSULIN SNOMED Code(s): 438161553 (5) Hx of BKA Status: Acute Code(s): Z89.519 - ACQUIRED ABSENCE OF UNSPECIFIED LEG BELOW KNEE SNOMED Code(s): 971687881 (6) Peripheral vascular occlusive disease Status: Acute Code(s): I73.9 - PERIPHERAL VASCULAR DISEASE, UNSPECIFIED SNOMED Code(s): 164613064
[2021-02-22] MEDS: POTASSIUM CHLORIDE ER 20 MEQ TAB.ER PO SCH (15:48)
[2021-02-22] MEDS: MAGNESIUM SULFATE-D5W PMX 1 GM in DEXTROSE/WATER 1 100ML.BAG IVPB SCH ×2 (15:49→16:49)
--- NOTE | 2021-02-22 16:28 | P.DS ---
Providers Date of admission: 02/20/21 16:38 Expected date of discharge: 02/22/21 Attending physician: Luc Corona Consults: 02/20/21 16:38 Consult Physician Urgent Consulting Provider: Tod Juarez Consult Reason/Comments: GI bleed Do you want consulting provider notified?: Yes 02/20/21 17:05 Consult Physician Urgent Consulting Provider: Darnell King Consult Reason/Comments: CRITICAL CARE Do you want consulting provider notified?: Yes 02/20/21 17:07 Consult Physician Urgent Consulting Provider: Barbara Christie Consult Reason/Comments: GI BLEED Do you want consulting provider notified?: Yes 02/20/21 21:38 Consult Physician Urgent Consulting Provider: [facility] Consult Reason/Comments: CAD/PVD/ECHO Do you want consulting provider notified?: Yes 02/21/21 10:05 Consult Physician Urgent Consulting Provider: Steven Vyas Consult Reason/Comments: SEVERE PVD/PAD Do you want consulting provider notified?: Yes Primary care physician: Luc Corona Hospital Course: Final diagnosis Gastrointestinal bleeding anemia generalized weakness diabetes mellitus type II hypertension hyperlipidemia peripheral vascular disease peripheral artery disease coronary artery disease history of G.I. bleeding below the knee amputation right side history of multiple femoral bypasses nicotine dependence full code Discharge disposition Patient is being discharged in a stable condition with guarded prognosis to home. Patient will follow-up with Dr. Corona in the outpatient setting upon discharge. Patient also instructed to follow-up with cardiology Dr. De La Torre along with hematology Dr. Marroquin, GI and surgery as needed, pulmonary Dr. King in the outpatient setting. Patient instructed to continue holding Xarelto on Plavix for 24 hours and then may resume. Prescriptions provided for repeat labs to monitor hemoglobin closely. Total time taken is greater than 35 minutes. Hospital course This is a 60-year-old female who follows with Dr. Corona in the outpatient setting who was recently admitted for generalized weakness, shortness of breath, fatigue and hemoglobin was found to be low requiring transfusion. She was seen and evaluated by cardiology along with surgery and GI and underwent EGD and colonoscopy showing no active bleeding or old blood to explain anemia with some mild gastritis and internal hemorrhoids with a few diminutive subcentimeter polyps in the rectum and sigmoid that were not removed due to recent dual antiplatelet therapy of Plavix and Xarelto. Hemoglobin today is stable at 8.7 with no active bleeding noted and status post transfusion of 3 units during hospitalization. Patient instructed to follow-up with GI along with surgery in the outpatient setting and recommend close monitoring of hemoglobin and follow- up with hematology for further testing. Patient also instructed to follow-up with cardiology in the outpatient setting and primary care provider Dr. Corona this week. Per GI recommendations along with cardiology recommend to continue holding Xarelto on Plavix for 24 hours and then may resume. Currently no reports of chest pain, worsening shortness of breath, or palpitations. Patient is afebrile. No reports of nausea or vomiting and patient is tolerating diet. Patient will be discharged home today. Guarded prognosis. On exam vital signs are stable. Cardio S1, S2 are muffled. Respiratory system shows diminished breath sounds at the bases with no wheezing or rhonchi noted. Abdomen is soft and nontender. Nervous system shows no focal deficits. Please refer to medication reconciliation sheet for a list of medications. Patient Condition at Discharge: Stable Plan - Discharge Summary New Discharge Prescriptions: Continue Cilostazol [Pletal] 100 mg PO BID Potassium Chloride [Klor-Con 20] 20 meq PO DAILY Atorvastatin [Lipitor] 20 mg PO HS lisinopriL 40 mg PO DAILY Insulin Glargine,Hum.rec.anlog [Lantus Solostar] 30 unit SQ HS INSULIN LISPRO (humaLOG) [humaLOG] 14 units SQ AC-TID Pantoprazole Sodium [Protonix] 40 mg PO DAILY oxyCODONE-APAP 10-325MG [Percocet 10-325 mg] 1 tab PO Q8HR PRN PRN Reason: Pain Ferrous Sulfate [Iron (65 MG Elemental)] 325 mg PO BID Docusate [Colace] 100 mg PO DAILY Pregabalin [Lyrica] 150 mg PO BID Chlorthalidone 25 mg PO DAILY Insulin Glargine,Hum.rec.anlog [Lantus Solostar] 20 unit SQ DAILY Discontinued Rivaroxaban [Xarelto] 20 mg PO HS metFORMIN HCL 1,000 mg PO BID Clopidogrel [Plavix] 75 mg PO DAILY Discharge Medication List Atorvastatin [Lipitor] 20 mg PO HS 02/12/21 [History] Chlorthalidone 25 mg PO DAILY 02/12/21 [History] Cilostazol [Pletal] 100 mg PO BID 02/12/21 [History] Docusate [Colace] 100 mg PO DAILY 02/12/21 [History] Ferrous Sulfate [Iron (65 MG Elemental)] 325 mg PO BID 02/12/21 [History] INSULIN LISPRO (humaLOG) [humaLOG] 14 units SQ AC-TID 02/12/21 [History] Insulin Glargine,Hum.rec.anlog [Lantus Solostar] 20 unit SQ DAILY 02/12/21 [History] Insulin Glargine,Hum.rec.anlog [Lantus Solostar] 30 unit SQ HS 02/12/21 [History] Pantoprazole Sodium [Protonix] 40 mg PO DAILY 02/12/21 [History] Potassium Chloride [Klor-Con 20] 20 meq PO DAILY 02/12/21 [History] Pregabalin [Lyrica] 150 mg PO BID 02/12/21 [History] lisinopriL 40 mg PO DAILY 02/12/21 [History] oxyCODONE-APAP 10-325MG [Percocet 10-325 mg] 1 tab PO Q8HR PRN 02/12/21 [History] Follow up Appointment(s)/Referral(s): Luc Corona MD [Primary Care Provider] - 1-2 days (Office is closed. Please call to schedule appointment) Vivek De La Torre MD [STAFF PHYSICIAN] - 4 Weeks (Spoke to tailer in. Office will call with appointment time) Chinmay Marroquin MD [STAFF PHYSICIAN] - 1 Week (Office is closed. Please call to schedule appointment) Darnell King MD [STAFF PHYSICIAN] - 1 Week (Office is closed. Please call to schedule appointment) Ambulatory/Diagnostic Orders: Complete Blood Count w/diff [LAB.AMB] Time Frame: 2 Days, Location: None Selected Patient Instructions/Handouts: Iron Rich Diet (ED), Anemia (ED) Activity/Diet/Wound Care/Special Instructions: Activity Limited until follow-up follow up with primary care provider this week Repeat labs in 2-3 days to monitor hemoglobin Follow-up with pulmonary outpatient in one week follow up with hematology outpatient for further testing in 1-2 weeks Follow-up with GI if symptoms persist in the outpatient setting Continue current diet Continue to hold Xarelto on Plavix for 24 hours and then may resume Discharge Disposition: HOME SELF-CARE
[2021-02-22 16:46] LABS: Glucose,Whole Blood 221 mg/dL (75-99)
[2021-02-22 17:15] VITALS: BP 136/80; PULSE 76; TEMP 98.6
--- NOTE | 2021-04-28 22:19 | P.GSCN ---
History of Present Illness Consult date: 02/21/21 History of present illness: CHIEF COMPLAINT: Acute anemia HISTORY OF PRESENT ILLNESS: The patient is a 60 year old female who presents with acute anemia hemoglobin less than 6.0 with pre-existing history of peripheral vascular occlusive disease including right wzdic-smr-bezt amputation. Patient was previously hospitalized at outside facility and left AGAINST MEDIC AL ADVICE less than 5 days ago. She presented to the emergency room with symptoms of anemia. She has been admitted secondary to anemia without source of bleeding. Patient is being seen by the GI service. PAST MEDICAL HISTORY: See list and reviewed PAST SURGICAL HISTORY: See list and reviewed MEDICATIONS: See list and reviewed ALLERGIES: See list and reviewed SOCIAL HISTORY: See list and reviewed FAMILY HISTORY: See list and reviewed REVIEW OF ORGAN SYSTEMS: CONSTITUTIONAL: No fevers or chills. No recent weight loss. EYES: Denies any trouble with vision. No glasses. HEENT: No difficulties with hearing. No nosebleeds. No difficulty swallowing. RESPIRATORY: Denies pneumonia. Denies any troubles with breathing or dyspnea on exertion. CARDIOVASCULAR: Has peripheral vascular occlusive disease. Hyperlipidemia. Hypertensive heart disease. History of lower extremity stents. GASTROINTESTINAL: Denies fatty food intolerance. Denies change in bowel habits and gas bloat. GENITOURINARY: Denies any blood in urine or increased urinary frequency. NEUROLOGICAL: Has numbness or tingling along the distal extremities. No seizure disorders or headaches. MUSCULOSKELETAL: Has peripheral vascular occlusive disease including right hpvdj-xcg-ieyv amputation. Has chronic pain syndrome. SKIN: No current skin cancer. No rash. PSYCHIATRIC: Denies current depression or suicidal thoughts. ENDOCRINE: Denies current thyroid disorders. Has diabetes type 2 with complications of peripheral neuropathy and peripheral vascular occlusive disease. Has diabetes insulin-dependent. HEME/LYMPHATIC: Has anemia. On blood thinners. On antiplatelet therapy. ALLERGY/IMMUNOLOGY: No immunoglobulin therapy. No immune deficiencies. BREAST: Denies current breast lumps, pain or nipple discharge. PHYSICAL EXAM: VITALS: Reviewed CONSTITUTIONAL: Well developed and in no acute distress. EYES: Conjuctivae without sclera icterus. Extraocular movements grossly intact. HEAD, EARS, NOSE, THROAT: Moist buccal mucosa. Head is atraumatic, normocephalic. Hears conversational speech. No nasal drainage. NECK: Supple. No JV distention. No thyroidomegaly. RESPIRATORY: Non-labored respirations and equal bilateral excursions. No gross wheezes. CARDIOVASCULAR: Regular rate and rhythm. Extremities without moderate edema. Palpable 2+ radial pulses. ABDOMEN: No peritonitis. Nontender. LYMPH: No neck lymphadenopathy. MUSCULOSKELETAL: Nail and fingers with good capillary refill. Has right beysx-ghs-xrcj amputation SKIN: Warm and well perfused with good skin turgor. NEUROLOGIC: Cranial nerves II through XII grossly intact. Sensation upper and extremities intact. No focal or lateralizing signs. PSYCH: Appropriate affect. Alert and oriented to person, place and time. Displays appropriate insight. CLINCAL LABS: Reviewed. Initial hemoglobin 5.6. EKG: Abnormal with ST abnormality, digitalis effect STUDIES: Chest x-ray reviewed without pneumothorax. This is my independent interpretation. ASSESSMENT: 1. Acute anemia 2. Peripheral vascular occlusive disease 3. Chronic anticoagulation 4. History of right kwuao-tlh-ytpz amputation 5. Diabetes type 2, insulin-dependent 6. Chronic antiplatelet therapy 7. Status post blood transfusion PLAN: 1. Recommend GI consultation for upper and lower endoscopy regarding anemia 2. Patient is elevated risk for complications due to peripheral vascular occlusive disease Thank you for this kind consultation. Past Medical History Past Medical History: Diabetes Mellitus, Hyperlipidemia, Hypertension Additional Past Medical History / Comment(s): anemia History of Any Multi-Drug Resistant Organisms: None Reported Past Surgical History: Orthopedic Surgery Additional Past Surgical History / Comment(s): neck fusion. rt below knee amputaion Past Psychological History: No Psychological Hx Reported Smoking Status: Never smoker Past Alcohol Use History: None Reported Past Drug Use History: None Reported - Past Family History Mother History Unknown: Yes Medications and Allergies Home Medications Medication Instructions Recorded Confirmed Type Atorvastatin [Lipitor] 20 mg PO HS 02/12/21 02/20/21 History Chlorthalidone 25 mg PO DAILY 02/12/21 02/20/21 History Cilostazol [Pletal] 100 mg PO BID 02/12/21 02/20/21 History Docusate [Colace] 100 mg PO DAILY 02/12/21 02/20/21 History Ferrous Sulfate [Iron (65 MG 325 mg PO BID 02/12/21 02/20/21 History Elemental)] INSULIN LISPRO (humaLOG) [humaLOG] 14 units SQ AC-TID 02/12/21 02/20/21 History Insulin Glargine,Hum.rec.anlog 20 unit SQ DAILY 02/12/21 02/20/21 History [Lantus Solostar] Insulin Glargine,Hum.rec.anlog 30 unit SQ HS 02/12/21 02/20/21 History [Lantus Solostar] Pantoprazole Sodium [Protonix] 40 mg PO DAILY 02/12/21 02/20/21 History Potassium Chloride [Klor-Con 20] 20 meq PO DAILY 02/12/21 02/20/21 History Pregabalin [Lyrica] 150 mg PO BID 02/12/21 02/20/21 History lisinopriL 40 mg PO DAILY 02/12/21 02/20/21 History oxyCODONE-APAP 10-325MG [Percocet 1 tab PO Q8HR PRN 02/12/21 02/20/21 History 10-325 mg] Allergies Allergy/AdvReac Type Severity Reaction Status Date / Time heparin Allergy Anaphylaxis Verified 02/20/21 15:54 morphine Allergy Anaphylaxis Verified 02/20/21 15:54 tree nut Allergy Nausea & Verified 02/20/21 15:54 Vomiting & Diarrhea Surgical - Exam Vital Signs Temp Pulse Resp BP Pulse Ox 98.1 F 98 22 105/46 100 02/20/21 12:43 02/20/21 12:43 02/20/21 12:43 02/20/21 12:43 02/20/21 12:43 Results - Labs 02/22/21 08:13 02/22/21 08:13 Abnormal Lab Results - Last 24 Hours (Table) 02/20/21 02/20/21 02/20/21 Range/Units 15:08 15:08 15:20 RBC 1.92 L (3.80-5.40) m/uL Hgb 5.6 L* D (11.4-16.0) gm/dL Hct 18.8 L* (34.0-46.0) % MCHC 30.3 L (31.0-37.0) g/dL RDW 16.6 H (11.5-15.5) % PT 12.4 H (9.0-12.0) sec INR 1.2 H (<1.2) APTT 20.1 L (22.0-30.0) sec Chloride (98-107) mmol/L BUN (7-17) mg/dL Glucose (74-99) mg/dL POC Glucose (mg/dL) (75-99) mg/dL Total Protein (6.3-8.2) g/dL Albumin (3.5-5.0) g/dL Crossmatch See Detail 02/20/21 02/20/21 02/21/21 Range/Units 15:20 21:48 04:36 RBC (3.80-5.40) m/uL Hgb (11.4-16.0) gm/dL Hct (34.0-46.0) % MCHC (31.0-37.0) g/dL RDW (11.5-15.5) % PT (9.0-12.0) sec INR (<1.2) APTT (22.0-30.0) sec Chloride 108 H 108 H (98-107) mmol/L BUN 24 H 23 H (7-17) mg/dL Glucose 217 H (74-99) mg/dL POC Glucose (mg/dL) 240 H (75-99) mg/dL Total Protein 5.9 L (6.3-8.2) g/dL Albumin 3.4 L (3.5-5.0) g/dL Crossmatch 02/21/21 02/21/21 02/21/21 Range/Units 04:36 04:36 06:13 RBC 2.64 L (3.80-5.40) m/uL Hgb 7.7 L D (11.4-16.0) gm/dL Hct 24.5 L (34.0-46.0) % MCHC (31.0-37.0) g/dL RDW 17.3 H (11.5-15.5) % PT (9.0-12.0) sec INR (<1.2) APTT 20.9 L (22.0-30.0) sec Chloride (98-107) mmol/L BUN (7-17) mg/dL Glucose (74-99) mg/dL POC Glucose (mg/dL) 229 H (75-99) mg/dL Total Protein (6.3-8.2) g/dL Albumin (3.5-5.0) g/dL Crossmatch Diabetes panel 02/20/21 02/21/21 Range/Units 15:20 04:36 Sodium 141 140 (137-145) mmol/L Potassium 3.6 3.8 (3.5-5.1) mmol/L Chloride 108 H 108 H (98-107) mmol/L Carbon Dioxide 24 26 (22-30) mmol/L BUN 24 H 23 H (7-17) mg/dL Creatinine 0.72 0.74 (0.52-1.04) mg/dL Glucose 89 217 H (74-99) mg/dL Calcium 9.7 9.0 (8.4-10.2) mg/dL AST 19 17 (14-36) U/L ALT 11 9 (4-34) U/L Alkaline Phosphatase 74 77 (38-126) U/L Total Protein 6.6 5.9 L (6.3-8.2) g/dL Albumin 3.7 3.4 L (3.5-5.0) g/dL Calcium panel 02/20/21 02/21/21 Range/Units 15:20 04:36 Calcium 9.7 9.0 (8.4-10.2) mg/dL Albumin 3.7 3.4 L (3.5-5.0) g/dL Pituitary panel 02/20/21 02/21/21 Range/Units 15:20 04:36 Sodium 141 140 (137-145) mmol/L Potassium 3.6 3.8 (3.5-5.1) mmol/L Chloride 108 H 108 H (98-107) mmol/L Carbon Dioxide 24 26 (22-30) mmol/L BUN 24 H 23 H (7-17) mg/dL Creatinine 0.72 0.74 (0.52-1.04) mg/dL Glucose 89 217 H (74-99) mg/dL Calcium 9.7 9.0 (8.4-10.2) mg/dL Adrenal panel 02/20/21 02/21/21 Range/Units 15:20 04:36 Sodium 141 140 (137-145) mmol/L Potassium 3.6 3.8 (3.5-5.1) mmol/L Chloride 108 H 108 H (98-107) mmol/L Carbon Dioxide 24 26 (22-30) mmol/L BUN 24 H 23 H (7-17) mg/dL Creatinine 0.72 0.74 (0.52-1.04) mg/dL Glucose 89 217 H (74-99) mg/dL Calcium 9.7 9.0 (8.4-10.2) mg/dL Total Bilirubin 0.2 0.3 (0.2-1.3) mg/dL AST 19 17 (14-36) U/L ALT 11 9 (4-34) U/L Alkaline Phosphatase 74 77 (38-126) U/L Total Protein 6.6 5.9 L (6.3-8.2) g/dL Albumin 3.7 3.4 L (3.5-5.0) g/dL Assessment and Plan (1) Diabetes mellitus type 2, insulin dependent Status: Acute Code(s): E11.9 - TYPE 2 DIABETES MELLITUS WITHOUT COMPLICATIONS; Z79.4 - MANUFACTURING JOB TITLES (CURRENT) USE OF INSULIN SNOMED Code(s): 856160198 (2) Antiplatelet or antithrombotic long-term use Status: Acute Code(s): Z79.02 - HALFWAY (CURRENT) USE OF ANTITHROMBOTICS/ANTIPLATELETS SNOMED Code(s): 295127161 (3) Anticoagulant long-term use Status: Acute Code(s): Z79.01 - HALFWAY (CURRENT) USE OF ANTICOAGULANTS SNOMED Code(s): 633735655 (4) Hx of BKA Status: Acute Code(s): Z89.519 - ACQUIRED ABSENCE OF UNSPECIFIED LEG BELOW KNEE SNOMED Code(s): 006643440 (5) Peripheral vascular occlusive disease Status: Acute Code(s): I73.9 - PERIPHERAL VASCULAR DISEASE, UNSPECIFIED SNOM ED Code(s): 416613119 (6) Anemia Status: Acute Code(s): D64.9 - ANEMIA, UNSPECIFIED SNOMED Code(s): 644602997 (7) Generalized weakness Status: Acute Code(s): R53.1 - WEAKNESS SNOMED Code(s): 71486265
== END 2021-02-22 18:02 | disposition home or self-care (01) | DRG 379 ==
LOC: EC 12:38 → 3SCARD 16:38
PROVIDERS: ADMIT Family Medicine; ATTEND Family Medicine
PROC: 30233N1 Transfusion of Nonautologous Red Blood Cells into Peripheral Vein, Percutaneous Approach (ICD-10-PCS; 2021-02-20 14:55)
PROC: 0DJD8ZZ Inspection of Lower Intestinal Tract, Via Natural or Artificial Opening Endoscopic (ICD-10-PCS; principal; 2021-02-22 13:00)
PROC: 0DJ08ZZ Inspection of Upper Intestinal Tract, Via Natural or Artificial Opening Endoscopic (ICD-10-PCS; principal; 2021-02-22 13:00)
DX: K92.2 Gastrointestinal hemorrhage, unspecified (principal); D63.8 Anemia in other chronic diseases classified elsewhere; E11.51 Type 2 diabetes mellitus with diabetic peripheral angiopathy without gangrene; E78.5 Hyperlipidemia, unspecified; F17.210 Nicotine dependence, cigarettes, uncomplicated; G47.33 Obstructive sleep apnea (adult) (pediatric); I10 Essential (primary) hypertension; I25.10 Atherosclerotic heart disease of native coronary artery without angina pectoris; I70.202 Unspecified atherosclerosis of native arteries of extremities, left leg; J44.9 Chronic obstructive pulmonary disease, unspecified; K29.70 Gastritis, unspecified, without bleeding; K62.1 Rectal polyp; K63.5 Polyp of colon; K64.8 Other hemorrhoids; T45.515A Adverse effect of anticoagulants, initial encounter; Z79.01 Long term (current) use of anticoagulants; Z79.02 Long term (current) use of antithrombotics/antiplatelets; Z79.4 Long term (current) use of insulin; Z79.899 Other long term (current) drug therapy; Z89.511 Acquired absence of right leg below knee; Z90.49 Acquired absence of other specified parts of digestive tract; Z98.1 Arthrodesis status; Z95.828 Presence of other vascular implants and grafts; Z20.822 Contact with and (suspected) exposure to COVID-19; Z88.8 Allergy status to other drugs, medicaments and biological substances; Z88.5 Allergy status to narcotic agent; Z91.018 Allergy to other foods
CPT/HCPCS: 36410; 36415; 43235; 45378; 71045; 71046; 74177; 76937; 80053; 83010; 83615; 83735; 84484; 85025; 85027; 85610; 85730; 86850; 86900; 86901; 86920; 87635; 93005; 93306; 96360; 99285

== ENCOUNTER 2022-06-17 10:07 | Emergency (ER) | payer OTHER ==
[2022-06-17 10:43] LABS: Glucose,Whole Blood 111 mg/dL (70-110)
== END 2022-06-17 10:49 | disposition left against medical advice (07) ==
LOC: EC 10:07
DX: Z53.21 Procedure and treatment not carried out due to patient leaving prior to being seen by health care provider (principal)
CPT/HCPCS: 36415; 99499

== ENCOUNTER 2022-11-06 12:31 | Emergency (ER) | payer OTHER ==
[2022-11-06 12:36] VITALS: BP 166/78; PULSE 106; RESP 20; TEMP 98
[2022-11-06] MEDS ORDERED: methylPREDNISolone SOD SUCCI 125 MG/2 ML VIAL IV STA (13:03)
[2022-11-06] MEDS ORDERED: diphenhydrAMINE 50 MG/ML 1 ML VIAL IVP STA (13:03)
[2022-11-06] MEDS ORDERED: FAMOTIDINE 20 MG/2 ML VIAL IV STA (13:03)
--- NOTE | 2022-11-06 13:19 | ED ---
Skin/Abscess/FB HPI - General Chief complaint: Skin/Abscess/Foreign Body Stated complaint: Rash Time Seen by Provider: 11/06/22 12:39 Source: patient, RN notes reviewed Mode of arrival: ambulatory Limitations: no limitations - History of Present Illness Initial comments: This is a 62-year-old female who presents to the emergency department for possible insect bites. States that 2 days ago, she was over at a friend's house and slept on the floor. She had been fine initially and the next day slept at home. Starting early this morning, she had increased itching to the arms, behind the ears, and abdomen. She has not tried taking Benadryl or any other medications, but states that the itching is uncontrollable. Patient is crying in the examination room. Unsure what she may have come into contact with and she has not noticed anything crawling on her. Denies any fevers, chills, sore throat, cough, dyspnea, chest pain, palpitations, abdominal pain, nausea, vomiting, diarrhea, back pain, or headaches. MD complaint: rash, insect bite/sting Location: generalized Associated symptoms: itching - Related Data Home Medications Medication Instructions Recorded Confirmed Atorvastatin [Lipitor] 20 mg PO HS 02/12/21 02/20/21 Chlorthalidone 25 mg PO DAILY 02/12/21 02/20/21 Docusate [Colace] 100 mg PO DAILY 02/12/21 02/20/21 Ferrous Sulfate [Iron (65 MG 325 mg PO BID 02/12/21 02/20/21 Elemental)] INSULIN LISPRO (humaLOG) [humaLOG] 14 units SQ AC-TID 02/12/21 02/20/21 Insulin Glargine,Hum.rec.anlog 20 unit SQ DAILY 02/12/21 02/20/21 [Lantus Solostar Pen] Insulin Glargine,Hum.rec.anlog 30 unit SQ HS 02/12/21 02/20/21 [Lantus Solostar Pen] Pantoprazole Sodium [Protonix] 40 mg PO DAILY 02/12/21 02/20/21 Potassium Chloride [Klor-Con 20] 20 meq PO DAILY 02/12/21 02/20/21 Pregabalin [Lyrica] 150 mg PO BID 02/12/21 02/20/21 cilostazoL [Pletal] 100 mg PO BID 02/12/21 02/20/21 lisinopriL 40 mg PO DAILY 02/12/21 02/20/21 oxyCODONE-APAP 10-325MG [Percocet 1 tab PO Q8HR PRN 02/12/21 02/20/21 10-325 mg] Previous Rx's Medication Instructions Recorded predniSONE 50 mg PO DAILY 5 Days #5 tab 11/06/22 Allergies Allergy/AdvReac Type Severity Reaction Status Date / Time heparin Allergy Anaphylaxis Verified 02/20/21 15:54 morphine Allergy Anaphylaxis Verified 02/20/21 15:54 tree nut Allergy Nausea & Verified 02/20/21 15:54 Vomiting & Diarrhea Review of Systems ROS Statement: Those systems with pertinent positive or pertinent negative responses have been documented in the HPI. ROS Other: All systems not noted in ROS Statement are negative. Past Medical History Past Medical History: Diabetes Mellitus, Hyperlipidemia, Hypertension Additional Past Medical History / Comment(s): anemia History of Any Multi-Drug Resistant Organisms: None Reported Past Surgical History: Orthopedic Surgery Additional Past Surgical History / Comment(s): neck fusion. rt below knee amputaion Past Psychological History: No Psychological Hx Reported Smoking Status: Never smoker Past Alcohol Use History: None Reported Past Drug Use History: None Reported - Past Family History Mother History Unknown: Yes General Exam Limitations: no limitations General appearance: alert, in distress Head exam: Present: atraumatic, normocephalic, normal inspection Respiratory exam: Present: normal lung sounds bilaterally. Absent: respiratory distress, wheezes, rales, rhonchi, stridor Cardiovascular Exam: Present: regular rate, normal rhythm, normal heart sounds. Absent: systolic murmur, diastolic murmur, rubs, gallop, clicks Neurological exam: Present: alert, oriented X3, CN II-XII intact Psychiatric exam: Present: normal affect, normal mood Skin exam: Present: other (Maculopapular lesions on the bilateral upper extremities, behind the ears, and trunk. Negative Nikolsky sign.) Course Vital Signs 11/06/22 12:32 Temperature 98 F Pulse Rate 106 H Respiratory 20 Rate Blood Pressure 166/78 O2 Sat by Pulse 94 L Oximetry Medical Decision Making - Medical Decision Making This is a 62-year-old female who presents to the emergency department for a rash and itching. Was pt. sent in by a medical professional or institution? @ -No Did you speak to anyone other than the patient for history? @ -No Did you review nursing and triage notes? @ -Yes, and I agree, it is accurate with regards to the patient's symptoms. Were old charts reviewed? @ -No Differential Diagnosis? @ -Differential rash Bed bugs, cellulitis, atopic dermatitis, insect bites, contact dermatitis, this is not meant to be an all-inclusive list. What testing was considered but not performed? (CT, X-rays, U/S, labs)? Why? @ -None What meds were considered but not given? Why? @ -None Did you discuss the management of the patient with other professionals? @ -No Did you reconcile home meds? @ -No Was smoking cessation discussed for >3mins.? @ -No Was critical care preformed (if so, how long)? @ -No Were there social determinants of health that impacted care today? How? (Homelessness, low income, unemployed, alcoholism, drug addiction, transportation, low edu. Level, literacy, decrease access to med. care, senior care, rehab)? @ -No Was there de-escalation of care discussed even if they declined? (Discuss DNR or withdrawal of care, Hospice)? @ -No What co-morbidities impacted this encounter? (DM, HTN, Smoking, COPD, CAD, Ca ncer, CVA, Hep., AIDS, mental health diagnosis, sleep apnea, morbid obesity)? @ -DM Was patient admitted / discharged? @ -Discharged. Physical examination is consistent with some sort of bite, however the kind of bite is not clear. She was given IV Solu-Medrol, Benadryl, and Pepcid, which she states did improve her symptoms. Prescription for 5 days of prednisone provided. Advised she continue [id number] Pepcid on a daily basis as well. Recommended Benadryl as needed for additional itching. Advised she wash all of her clothing and sheets in hot water the event she did acquire bedbugs. Undiagnosed new problem with uncertain prognosis? @ -None Drug Therapy requiring intensive monitoring for toxicity (Heparin, Nitro, Insulin, Cardizem)? @ -None Were any procedures done? @ -None Diagnosis/symptom? @ -Insect bite Acute, or Chronic, or Acute on Chronic? @ -Acute Uncomplicated (without systemic symptoms) or Complicated (systemic symptoms)? @ -Uncomplicated Side effects of treatment? @ -None Exacerbation, Progression, or Severe Exacerbation] @ -Not applicable Poses a threat to life or bodily function? @ -The itching is impacting her ability to function. Return precautions reviewed in depth, the patient is instructed to return to the emergency department with any new, worsening, or concerning symptoms. Patient verbalized understanding. This case was discussed in detail with the attending ED physician, Dr. Mosley. Presentation, findings, and treatment plan discussed in detail as well. - Lab Data Lab Results 11/06/22 Range/Units 14:29 POC Glucose (mg/dL) 119 H (70-110) mg/dL POC Glu Sheet Heater ID Tristian Young Disposition Clinical Impression: Contact dermatitis, Bites Disposition: HOME SELF-CARE Instructions (If sedation given, give patient instructions): Insect Bite or Sting (ED) Additional Instructions: Return to the emergency department with any new, worsening, or concerning symptoms. Take the prednisone daily for 5 days. You can also take over the counter famotidine 1-2 times daily for additional relief in symptoms. Take [id number] Benadryl as needed to help with itching. Follow up with your primary care provider in 1-2 days. Prescriptions: predniSONE 50 mg PO DAILY 5 Days #5 tab Is patient prescribed a controlled substance at d/c from ED?: No Referrals: Luc Corona MD [Primary Care Provider] - 1-2 days
[2022-11-06 14:31] LABS: Glucose,Whole Blood 119 mg/dL (70-110)
== END 2022-11-06 15:00 | disposition home or self-care (01) ==
LOC: EC 12:31
DX: S00.469A Insect bite (nonvenomous) of unspecified ear, initial encounter (principal); L25.9 Unspecified contact dermatitis, unspecified cause; E11.9 Type 2 diabetes mellitus without complications; E78.5 Hyperlipidemia, unspecified; I10 Essential (primary) hypertension; Z79.84 Long term (current) use of oral hypoglycemic drugs; Z79.899 Other long term (current) drug therapy; Z79.4 Long term (current) use of insulin; Z88.5 Allergy status to narcotic agent; Z91.018 Allergy to other foods; Z88.8 Allergy status to other drugs, medicaments and biological substances; Y92.019 Unspecified place in single-family (private) house as the place of occurrence of the external cause
CPT/HCPCS: 36415; 99283; 96374; 96375 ×2; J1200; J2930

== ENCOUNTER 2024-12-04 12:56 | Emergency (ER) | payer OTHER ==
--- NOTE | 2024-12-04 13:19 | ED ---
General Adult HPI - General Chief complaint: Shortness of Breath Stated complaint: sob Time Seen by Provider: 12/04/24 13:09 Source: patient Mode of arrival: ambulatory Limitations: no limitations - History of Present Illness Initial comments: Dictation was produced using [employer] dictation software. please excuse any grammatical, word or spelling errors. Chief Complaint: 64-year-old female presents with cough sore throat History of Present Illness: Patient is a 64-year-old female past medical history of diabetes, dyslipidemia and hypertension presents emergency department with cough, shortness of breath and sore throat since last night. Patient states she has been coughing green sputum. Denies any chest pain. She does report some mild dyspnea. Planes of sore throat and nasal congestion. No obvious sick contacts. The ROS documented in this emergency department record has been reviewed and confirmed by me. Those systems with pertinent positive or negative responses have been documented in the HPI. All other systems are other negative and/or noncontributory. - Related Data Home Medications Medication Instructions Recorded Confirmed Atorvastatin [Lipitor] 20 mg PO HS 02/12/21 02/20/21 Chlorthalidone 25 mg PO DAILY 02/12/21 02/20/21 Docusate [Colace] 100 mg PO DAILY 02/12/21 02/20/21 Ferrous Sulfate [Iron (65 MG 325 mg PO BID 02/12/21 02/20/21 Elemental)] INSULIN LISPRO (humaLOG) [humaLOG] 14 units SQ AC-TID 02/12/21 02/20/21 Insulin Glargine,Hum.rec.anlog 20 unit SQ DAILY 02/12/21 02/20/21 [Lantus Solostar Pen] Insulin Glargine,Hum.rec.anlog 30 unit SQ HS 02/12/21 02/20/21 [Lantus Solostar Pen] Pantoprazole Sodium [Protonix] 40 mg PO DAILY 02/12/21 02/20/21 Potassium Chloride [Klor-Con 20] 20 meq PO DAILY 02/12/21 02/20/21 Pregabalin [Lyrica] 150 mg PO BID 02/12/21 02/20/21 cilostazoL [Pletal] 100 mg PO BID 02/12/21 02/20/21 lisinopriL 40 mg PO DAILY 02/12/21 02/20/21 oxyCODONE-APAP 10-325MG [Percocet 1 tab PO Q8HR PRN 02/12/21 02/20/21 10-325 mg] Previous Rx's Medication Instructions Recorded predniSONE 50 mg PO DAILY 5 Days #5 tab 11/06/22 Oseltamivir [Tamiflu] 75 mg PO Q12HR 5 Days #9 cap 12/04/24 Allergies Allergy/AdvReac Type Severity Reaction Status Date / Time heparin Allergy Anaphylaxis Verified 12/04/24 13:07 morphine Allergy Anaphylaxis Verified 12/04/24 13:07 tree nut Allergy Nausea & Verified 12/04/24 13:07 Vomiting & Diarrhea Review of Systems ROS Statement: Those systems with pertinent positive or pertinent negative responses have been documented in the HPI. ROS Other: All systems not noted in ROS Statement are negative. Past Medical History Past Medical History: Diabetes Mellitus, Hyperlipidemia, Hypertension Additional Past Medical History / Comment(s): anemia History of Any Multi-Drug Resistant Organisms: None Reported Past Surgical History: Orthopedic Surgery Additional Past Surgical History / Comment(s): neck fusion. rt below knee amputaion Past Psychological History: No Psychological Hx Reported Smoking Status: Former smoker Past Alcohol Use History: None Reported Past Drug Use History: None Reported - Past Family History Mother History Unknown: Yes General Exam - General Exam Comments Initial Comments: PHYSICAL EXAM: General Impression: Alert and oriented x3, not in acute distress HEENT: Normocephalic atraumatic, extra-ocular movements intact, pupils equal and reactive to light bilaterally, mucous membranes moist. Cardiovascular: Heart regular rate and rhythm Chest: Able to complete full sentences, no retractions, no tachypnea Abdomen: abdomen soft, non-tender, non-distended, no organomegaly Musculoskeletal: Pulses present and equal in all extremities, no peripheral edema Motor: no focal deficits noted Neurological: CN II-XII grossly intact, no focal motor or sensory deficits noted Skin: Intact with no visualized rashes Psych: Normal affect and mood Limitations: no limitations Course Vital Signs 12/04/24 13:04 Temperature 98.2 F Pulse Rate 102 H Respiratory 20 Rate Blood Pressure 170/74 O2 Sat by Pulse 98 Oximetry EKG Findings - EKG Comments: EKG Findings:: My EKG interpretation: Ventricular rate 86, sinus rhythm, TN interval 154, QRS 83, QTc 389. No TN prolongation, no QTC prolongation, no ST or T-wave changes noted. Overall, this EKG is unremarkable Medical Decision Making - Medical Decision Making Was pt. sent in by a medical professional or institution (, PA, CURRICULUM DEVELOPMENT MANAGER, urgent care, hospital, or senior care...) When possible be specific @ -No Did you speak to anyone other than the patient for history (EMS, parent, family, police, friend...)? What history was obtained from this source @ -No Did you review nursing and triage notes (agree or disagree)? Why? @ -I reviewed and agree with nursing and triage notes Were old charts reviewed (outside hosp., previous admission, EMS record, old EKG, old radiological studies, urgent care reports/EKG's, senior care records)? Report findings @ -No old charts were reviewed Differential Diagnosis (chest pain, altered mental status, abdominal pain women, abdominal pain men, vaginal bleeding, musculoskeletal, weakness, fever, dyspnea, syncope, headache, dizziness, GI bleed, back pain, seizure, CVA, palpatations, mental health)? @ -Differential Fever: Pneumonia, viral URI, endocarditis, myocarditis, pericarditis, otitis, sinusitis, peritonsillar Abscess, retropharyngeal Abscess, epiglottitis, peritonitis, appendicitis, Della cystitis, diverticulitis, hepatitis, colitis, UTI, PID, TOA, pyelonephritis, prostatitis, epididymitis, meningitis, encephalit is, pulmonary embolism, CVA, thyroid storm, pancreatitis, adrenal crisis, cavernous sinus thrombosis, this is not meant to be an all-inclusive list. EKG interpreted by me (3pts min.). @ -See above X-rays interpreted by me (1pt min.). @ -Chest x-ray nonacute CT interpreted by me (1pt min.). @ -None done U/S interpreted by me (1pt. min.). @ -None done What testing was considered but not performed or refused? (CT, X-rays, U/S, labs)? Why? @ -None What meds were considered but not given or refused? Why? @ -None Was smoking cessation discussed for >3mins.? @ -No Were there social determinants of health that impacted care today? How? (Homelessness, low income, unemployed, alcoholism, drug addiction, transportation, low edu. Level, literacy, decrease access to med. care, [facility], rehab)? @ -No Was there de-escalation of care discussed even if they declined (Discuss DNR or withdrawal of care, Hospice)? DNR status @ -No What co-morbidities impacted this encounter? (DM, HTN, Smoking, COPD, CAD, Cancer, CVA, ARF, Chemo, Hep., AIDS, mental health diagnosis, sleep apnea, morbid obesity)? @ -None Was patient admitted / discharged? Hospital course, mention meds given and route, prescriptions, significant lab abnormalities, going to OR and other pertinent info. @ -64-year-old female with URI type symptoms. Vital signs are stable. Laboratory evaluation obtained. No leukocytosis. Metabolic panel is unremarkable. Patient positive for influenza A. Chest x-ray nonacute. Patient offered Tamiflu medication states that she would like it. Advise follow-up with primary care doctor. Did you discuss the management of the patient with other professionals (professionals i.e. , PA, CURRICULUM DEVELOPMENT MANAGER, lab, RT, psych nurse, social insurance analyst, vacuum conditioner operator, teacher, immigration services officer, case supervisor)? Give summary @ -No Was critical care preformed (if so, how long)? @ -No Undiagnosed new problem with uncertain prognosis? @ -No Drug Therapy requiring intensive monitoring for toxicity (Heparin, Nitro, Insul in, Cardizem)? @ -No Were any procedures done? @ -No Diagnosis/symptom? Acute, or Chronic, or Acute on Chronic? Uncomplicated (without systemic symptoms) or Complicated (systemic symptoms)? @ -Influenza Side effects of treatment? @ -No Exacerbation, Progression, or Severe Exacerbation? @ -No Poses a threat to life or bodily function? How? (Chest pain, [place], [place], pneumonia, PE, COPD, DKA, ARF, appy, cholecystitis, CVA, Diverticulitis, Homicidal, Suicidal, threat to staff... and all critical care pts) @ -No - Lab Data Result diagrams: 12/04/24 13:35 12/04/24 13:35 Lab Results 12/04/24 12/04/24 12/04/24 Range/Units 13:35 13:35 13:35 WBC 5.3 (3.8-10.6) k/uL RBC 4.27 (3.80-5.40) m/uL Hgb 12.4 (11.4-16.0) gm/dL Hct 38.3 (34.0-46.0) % MCV 89.7 (80.0-100.0) fL MCH 29.0 (25.0-35.0) pg MCHC 32.3 (31.0-37.0) g/dL RDW 14.5 (11.5-15.5) % Plt Count 144 L (150-450) k/uL MPV 9.6 Neutrophils % 82 % Lymphocytes % 9 % Monocytes % 5 % Eosinophils % 2 % Basophils % 0 % Neutrophils # 4.4 (1.3-7.7) k/uL Lymphocytes # 0.5 L (1.0-4.8) k/uL Monocytes # 0.3 (0-1.0) k/uL Eosinophils # 0.1 (0-0.7) k/uL Basophils # 0.0 (0-0.2) k/uL Sodium 137 (137-145) mmol/L Potassium 3.7 (3.5-5.1) mmol/L Chloride 102 (98-107) mmol/L Carbon Dioxide 29 (22-30) mmol/L Anion Gap 6 mmol/L BUN 13 (7-17) mg/dL Creatinine 0.55 (0.52-1.04) mg/dL Est GFR (CKD-EPI)AfAm >90 (>60 ml/min/1.73 sqM) Est GFR (CKD-EPI)NonAf >90 (>60 ml/min/1.73 sqM) Glucose 205 H (74-99) mg/dL Calcium 9.4 (8.4-10.2) mg/dL Total Bilirubin 0.4 (0.2-1.3) mg/dL AST 27 (14-36) U/L ALT 24 (4-34) U/L Alkaline Phosphatase 74 (38-126) U/L Total Protein 6.7 (6.3-8.2) g/dL Albumin 4.0 (3.5-5.0) g/dL Influenza Type A (PCR) (Not Detectd) Influenza Type B (PCR) (Not Detectd) RSV (PCR) (Not Detectd) SARS-CoV-2 (PCR) (Not Detectd) Group A Strep (PCR) NOT DETECTED (Not Detectd) 12/04/24 Range/Units 13:35 WBC (3.8-10.6) k/uL RBC (3.80-5.40) m/uL Hgb (11.4-16.0) gm/dL Hct (34.0-46.0) % MCV (80.0-100.0) fL MCH (25.0-35.0) pg MCHC (31.0-37.0) g/dL RDW (11.5-15.5) % Plt Count (150-450) k/uL MPV Neutrophils % % Lymphocytes % % Monocytes % % Eosinophils % % Basophils % % Neutrophils # (1.3-7.7) k/uL Lymphocytes # (1.0-4.8) k/uL Monocytes # (0-1.0) k/uL Eosinophils # (0-0.7) k/uL Basophils # (0-0.2) k/uL Sodium (137-145) mmol/L Potassium (3.5-5.1) mmol/L Chloride (98-107) mmol/L Carbon Dioxide (22-30) mmol/L Anion Gap mmol/L BUN (7-17) mg/dL Creatinine (0.52-1.04) mg/dL Est GFR (CKD-EPI)AfAm (>60 ml/min/1.73 sqM) Est GFR (CKD-EPI)NonAf (>60 ml/min/1.73 sqM) Glucose (74-99) mg/dL Calcium (8.4-10.2) mg/dL Total Bilirubin (0.2-1.3) mg/dL AST (14-36) U/L ALT (4-34) U/L Alkaline Phosphatase (38-126) U/L Total Protein (6.3-8.2) g/dL Albumin (3.5-5.0) g/dL Influenza Type A (PCR) Detected A (Not Detectd) Influenza Type B (PCR) Not Detected (Not Detectd) RSV (PCR) Not Detected (Not Detectd) SARS-CoV-2 (PCR) Not Detected (Not Detectd) Group A Strep (PCR) (Not Detectd) Disposition Clinical Impression: Influenza Disposition: HOME SELF-CARE Condition: Good Instructions (If sedation given, give patient instructions): Influenza (ED) Prescriptions: Oseltamivir [Tamiflu] 75 mg PO Q12HR 5 Days #9 cap Is patient prescribed a controlled substance at d/c from ED?: No Referrals: None,Stated [Primary Care Provider] - 1-2 days Time of Disposition: 14:19
[2024-12-04 13:42] LABS: Basophils % (A) 0 %; Eosinophils # (A) 0.1 k/uL (0-0.7); Eosinophils % (A) 2 %; HCT 38.3 % (34.0-46.0); HGB 12.4 gm/dL (11.4-16.0); Lymphocytes # (A) 0.5 k/uL (1.0-4.8); Lymphocytes % (A) 9 %; MCHC 32.3 g/dL (31.0-37.0); MCV 89.7 fL (80.0-100.0); Mean Platelet Volume 9.6; Monocytes # (A) 0.3 k/uL (0-1.0); Monocytes % (A) 5 %; Neutrophils # (A) 4.4 k/uL (1.3-7.7); Neutrophils % (A) 82 %; Platelet Count 144 k/uL (150-450); RBC 4.27 m/uL (3.80-5.40); RDW 14.5 % (11.5-15.5); WBC 5.3 k/uL (3.8-10.6)
[2024-12-04 13:49] LABS: ALT 24 U/L (4-34); AST 27 U/L (14-36); African American GFR (CKD) >90 (>60 ml/min/1.73 sqM); Alkaline Phosphatase 74 U/L (38-126); Anion Gap 6 mmol/L; Blood Urea Nitrogen 13 mg/dL (7-17); Calcium 9.4 mg/dL (8.4-10.2); Carbon Dioxide 29 mmol/L (22-30); Chloride 102 mmol/L (98-107); Glucose 205 mg/dL (74-99); Non-African American GFR(CKD) >90 (>60 ml/min/1.73 sqM); Potassium 3.7 mmol/L (3.5-5.1); Sodium 137 mmol/L (137-145); Total Bilirubin 0.4 mg/dL (0.2-1.3); Total Protein 6.7 g/dL (6.3-8.2)
--- NOTE | 2024-12-04 13:49 | XR ---
EXAMINATION TYPE: XR chest 2V DATE OF EXAM: 12/04/2024 1:46 PM COMPARISON: None. CLINICAL INDICATION: Female, 64 years old with history of cough, TECHNIQUE: XR chest 2V view(s) obtained. FINDINGS: The heart size is normal. The pulmonary vasculature is normal. The lungs are clear. IMPRESSION: 1. No acute pulmonary process. [facility], , 12/04/2024 1:47 PM
[2024-12-04 14:14] LABS: Influenza A Detected (Not Detectd); Influenza B Not Detected (Not Detectd); RSV Not Detected (Not Detectd)
[2024-12-04] MEDS: KETOROLAC 15 MG/ML 1 ML VIAL IVP STA (14:26)
[2024-12-04] MEDS: OSELTAMIVIR 75 MG CAP PO STA (14:28)
[2024-12-04 15:01] VITALS: BP 150/70; PULSE 89; RESP 18; TEMP 98.1
== END 2024-12-04 15:12 | disposition home or self-care (01) ==
LOC: EC 12:56
DX: J10.1 Influenza due to other identified influenza virus with other respiratory manifestations (principal); Z88.8 Allergy status to other drugs, medicaments and biological substances; Z88.5 Allergy status to narcotic agent; Z91.018 Allergy to other foods; Z87.891 Personal history of nicotine dependence
CPT/HCPCS: 36415; 87651; 80053; 85025; 87636; 71046; 99285; 96374; J1885